=== PATIENT | male | born 1965 | race Caucasian/White ===

== ENCOUNTER 2024-07-11 06:03 | Inpatient (IN) | payer OTHER, SELFPAY ==
[2024-07-11] VITALS (9 sets, daily range): BP systolic 120–173; BP diastolic 77–109; PULSE 58–96; RESP 16–20; TEMP 36.4–37.3; O2SAT 94–97; BMI 36.1
--- NOTE | 2024-07-11 06:07 | EKG_ITS ---
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
--- NOTE | 2024-07-11 06:19 | PD.EDRME ---
Rapid Medical Screening Exam RME Arrival date/time: 07/11/24 06:03 58-year-old male with a history of hypertension, hyperlipidemia, and CABG presents to the emergency room with a chief complaint of 7 out of 10 sternal chest pain that radiates to the left arm that began this morning. Patient states he has taken 1 nitroglycerin. I have greeted and performed a focused initial assessment of this patient. A comprehensive ED assessment and evaluation of the patient, analysis of all test results, and completion of the medical decision making process will be conducted by additional ED providers. Chief Complaint: Chest Pain Vital signs: Vital Signs Temperature 97.9 F 07/11/24 06:15 Pulse Rate 90 07/11/24 06:15 Respiratory Rate 18 07/11/24 06:15 Blood Pressure 165/103 H 07/11/24 06:15 Pulse Oximetry (%) 97 07/11/24 06:15 Oxygen Delivery Method Room Air 07/11/24 06:15 Vital signs reviewed by provider: Yes
--- NOTE | 2024-07-11 06:44 | EDNOTE_ITS ---
ED Chest Pain RME/HPI General Chief Complaint: Chest Pain Stated Complaint: Chest Pain bilateral arm pain Time Seen by Provider: 07/11/24 06:38 Arrival date/time: 07/11/24 06:03 RME / HPI RME / HPI narrative: 07/11/24 06:03 58-year-old male with a history of hypertension, hyperlipidemia, and CABG presents to the emergency room with a chief complaint of 7 out of 10 sternal chest pain that radiates to the left arm that began this morning. Patient states he has taken 1 nitroglycerin. I have greeted and performed a focused initial assessment of this patient. A comprehensive ED assessment and evaluation of the patient, analysis of all test results, and completion of the medical decision making process will be conducted by additional ED providers. This section includes all my notes and documentations, including HPI, PE, and ED course.? 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 States he went to bed at his usual state of health last night. At approximately 05:00 am today while laying in bed noted a burning pain located across his chest that radiates to his left arm. Rated 7/10 while in the ED. Accompanied by elevated heart rate. Patient reported he forgot to take his Lisinopril, Metropolol, and Klonopin last night. Took his Lisinopril, Metropolol, and 1/2 of his Klonopin this morning in addition to 1 SL Nitro and 325mg Aspirin. States very mild improvement after taking his medications. Denies any recent illness, fevers, chills, cough, shortness of breath, sweating, abdominal pain, nausea, or vomiting. Denies known history of COPD or asthma. No other complaints. Social hx: Denies smoking Cub Reporter: Dr. Keily Tian ROS: All negative except as documented in HPI. Physical Exam: General:? Alert and oriented.? No acute distress when remaining still.?? Eyes:? Conjunctivae and lids clear.? ENT:? No nasal congestion.? Neck:? Supple.? Heart:? RRR.? Lungs:? No respiratory distress.? Good air movement.? No rhonchi, wheezing, rales.?? Abdomen:? Soft and nontender.?? Legs:? No clubbing, cyanosis, edema.? Skin:? Warm and dry.?? Neuro:? Alert and oriented X 3.?? Initially, suspected anxiety. Oral Xanax given, no significant improvement noted. I reviewed all diagnostic test results. My interpretation of the EKG is?sinus rhythm with nonspecific ST?T changes. My interpretation of the chest x-ray is no acute findings, official radiology report is pending. Blood tests remarkable for troponin 0.097. UA pending. At this point, diagnoses include?NSTEMI. Treatment here included?morphine 2 mg IV, oral metoprolol 25 mg, Plavix 100 mg, and Lovenox 125 mg SC. Patient took ASA 325 mg at home. Some improvement noted. I discussed the case with our granite polisher apprentice and our hospitalist.? About the presentation and exam and diagnostics and treatments here.? And need of further care in the hospital.? Will accept the patient. Sterling Robins MD Related Data Home Medications ?Medication ?Instructions ?Recorded ?Confirmed allopurinol 300 mg tablet 300 mg PO DAILY ##0 04/29/13 12/05/23 lisinopril 20 mg tablet (Prinivil) 40 mg PO HS #30 tabs 04/29/13 12/05/23 simvastatin 40 mg tablet 40 mg PO HS ##0 04/29/13 12/05/23 clonazepam 1 mg tablet (Klonopin) 1 mg PO HS #0 tabs 12/02/13 12/05/23 hydrocodone 5 mg-acetaminophen 325 1 tab PO Q6H PRN Back Pain 04/18/23 12/05/23 mg tablet metoprolol tartrate 50 mg tablet 50 mg PO BID 04/18/23 12/05/23 Allergies Allergy/AdvReac Type Severity Reaction Status Date / Time No Known Allergies Allergy Verified 07/11/24 06:06 Review of Systems Review of Systems Systems Reviewed: All systems reviewed, normal except as documented Past Medical History Past Medical History CARDIAC: Positive Cardiac Disorders, Coronary Artery Disease, Hypercholesterolemia and Hypertension MUSCULOSKELETAL: Positive Musculoskeletal Disorders Surgical History SURGICAL: Positive Coronary Artery Bypass Graft Social History SMOKING STATUS: Former smoker ED Exam Narrative Physical exam: As noted in HPI Course Course Course Narrative: chest xray ordered to help determine etiology of chest pain. Quality Measures none Orders Category Date Time Status COVID-19 Screening Questionnaire NOW Care 07/11/24 08:21 Active Decision to Admit X1 Care 07/11/24 08:21 Completed EKG (ED ONLY) *Do not use* NOW Care 07/11/24 06:07 Completed Saline [Insert IV] NOW Care 07/11/24 06:45 Active Consult to Cardiology Stat Cons 07/11/24 08:17 Ordered EKG (ED Only) Stat Exams 07/11/24 06:07 Ordered XR chest 1V portable Stat Exams 07/11/24 07:26 Taken B-Type Natriuretic Peptide Stat Lab 07/11/24 07:01 Completed CBC Stat Lab 07/11/24 07:01 Completed Comprehensive Metabolic Panel Stat Lab 07/11/24 07:01 Completed D-Dimer Stat Lab 07/11/24 07:01 Completed Drug Screen,Urine Stat Lab 07/11/24 07:30 Received Magnesium Stat Lab 07/11/24 07:01 Completed PT [Prothrombin Time with INR] Stat Lab 07/11/24 08:10 Ordered PTT [Partial Thromboplastin Time] Stat Lab 07/11/24 08:10 Ordered TSH [Thyroid Stimulating Hormone] Stat Lab 07/11/24 07:01 Completed Troponin I Stat Lab 07/11/24 07:01 Completed Urinalysis Stat Lab 07/11/24 07:30 Received ALPRazoLAM [Xanax] Med 07/11/24 06:45 Discontinued 1 mg PO X1 ONE Clopidogrel [Plavix] Med 07/11/24 08:06 Discontinued 300 mg PO X1 ONE Enoxaparin [Lovenox] Med 07/11/24 08:19 Discontinued 125 mg SC X1 ONE Metoprolol Tartrate [Lopressor] Med 07/11/24 08:06 Discontinued 25 mg PO X1 ONE Morphine Inj Med 07/11/24 08:06 Discontinued 4 mg IVP X1 ONE Vital Signs Vital signs: Vital Signs Temperature 97.9 F 07/11/24 06:15 Pulse Rate 90 07/11/24 06:15 Respiratory Rate 18 07/11/24 06:15 Blood Pressure 165/103 H 07/11/24 06:15 Pulse Oximetry (%) 97 07/11/24 06:15 Oxygen Delivery Method Room Air 07/11/24 06:15 Pulse ox is 97% on room air which is adequate. Chest Pain MDM Narrative MDM Narrative:: I, Jo Doe, am scribing for and in the presence of Dr. Robins. Patient data External records reviewed:: [facility] previous records (I reviewed ED visit on 04/18/2023) Clinical information provided by:: patient Social determinants that could affect healthcare access:: none Patient has the following chronic illnesses:: NV, CAD, s/p CABG 10/2012, hypertension, hyperlipidemia How is presenting disease/condition affected by chronic disease/condition?: exacerbated by Evaluation data The following diagnostics were reviewed and interpreted by me:: lab results, radiology exam(s) and EKG tracing(s) (My interpretation of the EKG is: Sinus rhythm (86 bpm) with nonspecific ST-T changes. Sterling Robins MD) Lab and/or radiology exams considered but not ordered:: None Interpretation Summary: NSTEMI Medications / Prescriptions Medications or Prescriptions considered but not ordered:: None Medication administrations:: Medication Administration History Discontinued Medications Alprazolam (Alprazolam 0.25 Mg Tablet) 1 mg PO X1 ONE Stop: 07/11/24 06:46 Last Admin: 07/11/24 06:52 Dose: 1 mg Documented By: EMELY Clopidogrel Bisulfate (Clopidogrel Bisulfate 75 Mg Tablet) 300 mg PO X1 ONE Stop: 07/11/24 08:07 Last Admin: 07/11/24 08:17 Dose: 300 mg Documented By: LANEY Enoxaparin Sodium (Enoxaparin Sod Inj 120 Mg/0.8 Ml Syringe) 125 mg SC X1 ONE Stop: 07/11/24 08:20 Metoprolol Tartrate (Metoprolol Tartrate 25 Mg Tablet) 25 mg PO X1 ONE Stop: 07/11/24 08:07 Last Admin: 07/11/24 08:16 Dose: 25 mg Documented By: LANEY Morphine Sulfate (Morphine Sulf Inj 10 Mg/Ml Vial) 4 mg IVP X1 ONE Stop: 07/11/24 08:07 Last Admin: 07/11/24 08:18 Dose: 4 mg Documented By: LANEY Morphine and metoprolol and Plavix and Lovenox Consultations Consultation(s) initiated? (list below): Yes Consultation #1 (Physician, Specialty, Details): I spoke with granite polisher apprentice Dr. Zarate. Discussed patients PMHx, HPI, ED course, exam findings, labs, and EKG results. Time: 08:10 Consultation #2 (Physician, Specialty, Details): I spoke with hospitalist Dr. Pereira regarding admission. Discussed patients PMHx, HPI, ED course, exam findings, labs, and radiology results. The hospitalist agree to accept the patient for admission. Time: 08:20 Diagnosis Chest Pain Differential Diagnosis: pneumothorax, stable angina, unstable angina pectoris, atypical chest pain, st elevation myocardial infarction, costochond ritis, chest pain and biliary colic Most likely diagnosis given after review of the tests above:: NSTEMI Admission Indicated Admission indicated?: indicated Explain why admission is indicated or not indicated:: NSTEMI Admission Request Was there a request for admission?: Yes Admission Attestation Admission request attestation: Discussed case with Hospitalist service regarding admission. Discussed patients ED course, exam findings, labs, and radiology results. The Hospitalist [agrees,declines] to accept the patient for admission. Disposition Plan Disposition Plan: Admit Critical Care Time Critical Care Time Critical Care Time: Yes Total Critical Care Time (min.): 36 Attestation: Due to a high probability of clinically significant, life threatening deterioration, the patient required my highest level of preparedness to intervene emergently and I personally spent this critical care time directly and personally managing the patient. This critical care time included obtaining a history; examining the patient; ordering and review of studies; arranging urgent treatment with development of a management plan; evaluation of patient's response to treatment; frequent reassessment; and discussions with family and other providers. It was exclusive of separately billable procedures and treating other patients and teaching time. Sterling Robins MD Discharge Plan Plan Patient Disposition: Admit Acute Care w/in Hospital Prescriptions/Referrals Prescriptions/Med Rec: No Action lisinopril [Prinivil] 20 MG tablet 40 mg PO HS Qty: 30 simvastatin 40 MG tablet 40 mg PO HS Qty: 0 allopurinol 300 MG tablet 300 mg PO DAILY Qty: 0 clonazepam [Klonopin] 1 MG tablet 1 mg PO HS Qty: 0 hydrocodone-acetaminophen 5-325 mg tablet 1 tab PO Q6H PRN (Reason: Back Pain) Patient Comments: TAKE 1 TABLET BY MOUTH EVERY 6 HOURS NEEDED FOR BACK PAIN metoprolol tartrate 50 mg tablet 50 mg PO BID Referrals: Faisal Nava MD [Primary Care Provider] - In 1 week Problem List Clinical Impression: Non-ST elevation NV (NSTEMI) Patient/Caregiver Discharge Instructions Print Language: Palestinian Stand Alone Forms: Flor Award Info., Patient Portal Info Letter
[2024-07-11] MEDS: ALPRazoLAM 0.25 MG TABLET 1 MG PO (06:52)
[2024-07-11 07:21] LABS: Basophils % (Auto) 1 % (0-2.5); Eosinophils # (Auto) 0.3 Thou/mm3 (0.0-0.5); Eosinophils % (Auto) 4 % (0-10); Hematocrit 43.9 % (41.0-53.0); Hemoglobin 15.3 g/dL (13.5-16.0); Immature Granulocytes % (Auto) 1 % (0-0); Immature Granulocytes Auto 0.04 Thou/mm3 (0.00-0.00); Lymphocytes # (Auto) 0.9 Thou/mm3 (1.0-4.8); Lymphocytes % (Auto) 13 % (10-50); Mean Corpuscular HGB Conc 34.9 g/dl (31.0-37.0); Mean Corpuscular Hemoglobin 31.5 pg (25.0-35.0); Mean Corpuscular Volume 90 fL (80-100); Monocytes # (Auto) 0.6 Thou/mm3 (0.0-0.8); Monocytes % (Auto) 9 % (0-12); Neutrophils # (Auto) 5.2 Thou/mm3 (1.8-7.7); Neutrophils % (Auto) 73 % (37-80); Nucleated Red Blood Cell % 0 /100 WBC (0); Platelet Count 224 Thou/mm3 (140-440); RDW Standard Deviation 40.4 fL (35.1-43.9); Red Blood Count 4.86 Miln/mm3 (4.50-5.90); White Blood Count 7.1 Thou/mm3 (3.8-10.6)
--- NOTE | 2024-07-11 07:26 | XR_ITS ---
Examination: AP chest single view Technique one AP portable upright chest single view Exam date and time: July 11, 2024 0736 hours Comparison April 18, 2023 INDICATIONS: Shortness of breath chest pain today FINDINGS: Mild prominence left ventricle Suspicious for early pneumonia left base CABG No [place] pulmonary edema Moderate osteopenia IMPRESSION: Suspicious for early left base pneumonia
[2024-07-11 07:43] LABS: Alanine Aminotransferase 33 U/L (10-49); Albumin, Serum 4.3 gm/dL (3.5-5.0); Albumin/Globulin Ratio 1.8 (1.2-2.2); Alkaline Phosphatase 95 U/L (46-116); Anion Gap 7 (7-16); Aspartate Amino Transferase 28 U/L (0-34); BUN/Creatinine Ratio 13 Ratio (12-20); Bilirubin,Total 0.3 mg/dL (0.3-1.2); Blood Urea Nitrogen 18 mg/dL (9-23); Calcium 9.1 mg/dL (8.3-10.6); Calcium (Corrected) 9.1 mg/dL (8.5-10.1); Carbon Dioxide 25.7 mMol/L (20.0-31.0); Chloride 105 mMol/L (98-107); Creatinine (Component) 1.4 mg/dL (0.6-1.3); Estimated Creatinine Clearance 78.5 mL/min (>60); Globulin 2.4 gm/dL (2.3-3.5); Glucose 185 mg/dL (74-106); Osmolality,Calculated 282 (275-295); Potassium 4.5 mMol/L (3.4-5.1); Sodium 138 mMol/L (136-145); Thyroid Stimulating Hormone 3.09 uIU/mL (0.55-4.78); Total Protein 6.7 gm/dL (5.7-8.2); eGFR 58 See Note
[2024-07-11 07:46] LABS: D-Dimer < 250 ng/mL (<600)
[2024-07-11 07:56] LABS: Troponin I 0.097 ng/mL (0.0-0.045)
[2024-07-11 08:00] LABS: Collection Type, Urine Clean Catch; Squamous Epithelial Cell,Urine 0 /hpf (0-5)
[2024-07-11 08:14] LABS: B-Type Natriuretic Peptide 61 pg/mL (0-100)
[2024-07-11] MEDS: METOPROLOL TARTRATE 25 MG TABLET PO (08:16)
[2024-07-11] MEDS: CLOPIDOGREL BISULFATE 75 MG TABLET 300 MG PO (08:17)
[2024-07-11] MEDS: MORPHINE SULF INJ 10 MG/ML VIAL 4 MG IVP (08:18)
[2024-07-11 08:31] LABS: Amphetamine/Methamp Scrn,U Negative (Negative); Barbiturate Screen,Urine Negative (Negative); Benzodiazepines Screen,Urine Negative (Negative); Benzoylecgonine Screen, Ur Negative (Negative); Fentanyl Screen,Urine Negative (Negative); Opiate Screen,Urine Positive (Negative); THC Screen,Urine Negative (Negative)
[2024-07-11 08:35] LABS: Bilirubin,Urine Negative (Negative); Blood,Urine Negative (Negative); Clarity,Urine Clear (Clear/Hazy); Color,Urine Colorless (Lt Yel-Yel); Glucose, Urine Negative (Negative); Ketones,Urine Negative (Negative); Leukocyte Esterase,Urine Negative (Negative); Nitrite,Urine Negative (Negative); PH,Urine 6.5 (5.0-7.0); Protein,Urine Negative (Neg - Trace); RBC,Urine < 1 /hpf (0-3); Urobilinogen,Urine Negative mg/dL (0.0-1.0); WBC,Urine < 1 /hpf (0-5)
[2024-07-11] MEDS: ENOXAPARIN SOD INJ 100 MG/ML SYRINGE 125 MG SC (09:01)
[2024-07-11] MEDS: PANTOPRAZOLE INJ 40 MG VIAL IVP (09:01)
[2024-07-11 09:18] LABS: Partial Thromboplastin Time 26.5 Seconds (22.0-36.0); Prothrombin Time 10.9 Seconds (9.0-12.2)
[2024-07-11 09:25] LABS: Glucose Estimated Average 123 mg/dL (80-131); Hemoglobin A1C 5.9 % Hgb (4.8-6.0)
[2024-07-11 09:37] LABS: Cardiac Risk Estimate 4.3 RATIO (4.0-6.7); Cholesterol 178 mg/dL (132-200); HDL Cholesterol 41 mg/dL (40-60); Triglycerides 415 mg/dL (30-150)
--- NOTE | 2024-07-11 10:53 | PC.CC ---
Patient is a 58 year-old male who presents to the hospital for ANGINA. Astrid NASH made [id number] contact with patient. ASW introduced self, role, and reason for visit. Patient appeared alert and oriented to self, location, and situation. Patient was pleasant and engaged in initial assessment. Patient confirmed information on demographics and reports to living withhis , Keyonna Bales . Patient stated that his is his medical decision maker should he not be able to make his own medical decision. Patient is able to ambulate independently and complete own ADLs. Patient does not use any DME at home. Patient receives primary care with provider Faisal Nava and pharmacy of choice is [facility]. Upon discharge patient plans to return home with his . environmental services associate to follow-up with any discharge needs.
--- NOTE | 2024-07-11 11:36 | ECHO_ITS ---
Transthoracic Echo Report Ht (in): 73 Wt (lb): 274 Exam Location: ER Status: Inpatient Contact Centre Supervisor: Hermila Stroud Indications: Procedure Performed: BP: 120 / 83 HR: 63 Rhythm: Sinus Technical Quality: Technically difficult study MEASUREMENTS (Male / Female) Normal Values 2D ECHO LV Diastolic Diameter PLAX 6.0 cm 4.2 - 5.9 / 3.9 - 5.3 cm LV Systolic Diameter PLAX 4.7 cm IVS Diastolic Thickness 1.2 cm 0.6 - 1.0 / 0.6 - 0.9 cm LVPW Diastolic Thickness 1.0 cm 0.6 - 1.0 / 0.6 - 0.9 cm LV Relative Wall Thickness 0.4 LVOT Diameter 2.7 cm LA Volume Index 38.5 cm?/m? 16 - 28 cm?/m? Ascending Aorta Diameter 3.8 cm M-MODE Aortic Root Diameter MM 4.2 cm LA Systolic Diameter MM 4.7 cm LA Ao Ratio MM 1.1 AV Cusp Separation MM 2.3 cm DOPPLER AV Peak Velocity 101.0 cm/s AV Peak Gradient 4.1 mmHg AV Mean Gradient 3.0 mmHg AV Velocity Time Integral 21.5 cm AI Peak Velocity 277.0 cm/s AI Peak Gradient 30.7 mmHg AI Pressure Half Time 510.0 ms LVOT Peak Velocity 63.5 cm/s LVOT Peak Gradient 1.6 mmHg LVOT Velocity Time Integral 13.1 cm LVOT Cardiac Index 1836.5 cm?/min?m? AV Area Cont Eq vti 3.5 cm? AV Area Cont Eq pk 3.6 cm? MV Peak Velocity 77.5 cm/s MV Peak Gradient 2.4 mmHg MV Mean Velocity 43.5 cm/s MV Mean Gradient 1.0 mmHg MV Area PHT 3.4 cm? MR Peak Velocity 244.0 cm/s MR Peak Gradient 23.8 mmHg Mitral E Point Velocity 68.8 cm/s Mitral A Point Velocity 57.7 cm/s Mitral E to A Ratio 1.2 LV E' Lateral Velocity 8.1 cm/s Mitral E to LV E' Lateral Ratio 8.6 LV E' Septal Velocity 4.9 cm/s Mitral E to LV E' Septal Ratio 14.1 FINDINGS Left Ventricle Dilated left ventricle. Mild systolic dysfunction. Mild global hypokinesis. The ejection fraction i s visually estimated at 40-45%. Right Ventricle The right ventricle is normal in size and systolic function. Left Atrium The left atrium is mildly dilated. Right Atrium The right atrium is normal by two-dimensional imaging, color flow and Doppler imaging with no struct ural abnormalities, no thrombus formation present. Atrial Septum The interatrial septum appears normal with no evidence of a shunt. Aorta The aortic root and ascending aorta are mildly dilated. Mitral Valve The mitral valve is normal by two-dimensional, color flow and Doppler interrogation. There is mild mitral valve regurgitation. Aortic Valve The aortic valve is trileaflet and normal by two-dimensional, color flow and Doppler interrogation. There is mild aortic valve regurgitation. Tricuspid Valve The tricuspid valve is normal by two-dimensional, color flow and Doppler interrogation. There is tra ce tricuspid valve regurgitation. Pulmonic Valve There is mild pulmonic valve regurgitation. Vessels The pulmonary artery appears normal. The inferior vena cava pulmonary and hepatic veins appear radha l. Pericardium The pericardium is normal by two-dimensional imaging. There is no significant pericardial effusion. CONCLUSIONS Dilated left ventricle. Mild systolic dysfunction. Mild global hypokinesis. Estimated EF 40-45% Normal RV size and function. The left atrium is mildly dilated. The aortic root and ascending aorta are mildly dilated. Mild MR, Maritza Jerzy (Electronically Signed) Final Date: 11 July 2024 15:39
[2024-07-11] MEDS: HYDROcodone/APAP 10/325 TAB PO ×2 (13:23→23:10)
--- NOTE | 2024-07-11 15:01 | ESCONSULT_ITS ---
<Statement entered by Zeenat Tian MD - 07/13/24 09:13> I personally examined the patient evaluated has known CAD bypass surgery has recurrent chest pain was found to acute non-ST segment elevation microinfarction will Lovenox and scheduled for coronary angiogram cardiac evaluation for further assessment agree with the treatment plan recommendation as documented by PGY 2 Dr Lopez. HPI Data of Consult Requesting Physician: Hugh Pereira MD Admitting Provider: Hugh Pereira MD Attending Provider: Hugh Pereira MD Primary Care Provider: Faisal Nava MD Consult Narrative Reason for consult: Chest pain History of present illness: Mr. Bales is a 58-year-old male with past medical history significant for CAD status post CABG, hypertension, hyperlipidemia, prediabetes, anxiety, arthritis who presented to the ED with severe, dull chest pain. Patient states that he got up at 2 AM this morning to use the restroom, and felt sweaty and nauseated. Patient went back to sleep, however woke up to tingling and dull 10 out of 10 chest pain which woke him up around 3:50 AM. Patient's pain started in his left elbow radiating to his left shoulder and chest region as well as to the right shoulder. Patient states that this pain was different to his previous NE which was in 2012. Patient states that he took a nitro glycerin sublingual as well as aspirin 325 mg which helped with his pain. However, chest pain was not going away, and decided to come to the ER instead of going to work. Of note, patient is scheduled to have a colonoscopy next week. Past medical history: As mentioned above Past surgical history: CABG on October 09, 2012 in [place] Social history: Patient socially drinks, about 3-4 beers a week. Patient smoked about 1 pack a month for about 2 or 3 years when he was really young. Patient denies any recent smoking or any illicit drug use. Family history: Positive for diabetes, cancer on his father side. Allergies: Allergic to Felipe, patient breaks out into hives Meds: Patient takes hydrocodone 5-325 mg, allopurinol 300 mg p.o. daily, aspirin 325 mg p.o. daily, Klonopin 1 mg p.o. at bedtime,lisinopril 40 mg at bedtime, loratadine 10 mg p.o. daily, metoprolol tartrate 50 mg p.o. twice daily, nitroglycerin 0.4 mg as needed, simvastatin 40 mg p.o. at bedtime, co-Q10, show caplets, multi vitamin mens In the ED, patient vital signs remarkable for elevated blood pressure 165/103 otherwise unremarkable. Labs significant for elevated troponin of 0.097 which elevated to 15.7, 3 hours later. Triglycerides elevated at 415. Total cholesterol 178 and HDL 41. Elevated creatinine at 1.4, baseline creatinine between 1.1-1.3. Patient initially given alprazolam 1 mg x 1 for his anxiety, metoprolol tartrate 25 mg x 1, as well as loading dose of Plavix 300 mg x 1. Patient's pain continued to worsen, and was given morphine 4 mg IV x 1 which helped with the pain. Patient also treated with therapeutic Lovenox 100 mg subcu and IV pantoprazole. Cardiology was consulted for further evaluation of NSTEMI. cc:: cc: Hugh Pereira MD Review of Systems Review of Systems Systems Reviewed: All systems reviewed, normal except as documented Exam Vital Signs Temp Pulse Resp BP Pulse Ox O2 Del Method 97.9 F 70 16 141/96 H 96 Room Air 07/11/24 14:33 07/11/24 14:33 07/11/24 14:33 07/11/24 14:33 07/11/24 14:33 07/11/24 14:33 Narrative Exam General Appearance: Pt in mild acute distress laying comfortably in bed. Obese, and appears flushed. HEENT: NC/AT, no scleral icterus, no conjunctival pallor, MMM Lungs: CTAB, no wheezes or crackles appreciated CVS: RRR, S1/S2 heard, no murmurs or rubs appreciated ABD: Soft, non-tender, non-distended, BS + in all 4 quadrants EXT: no deformity/edema/lesions/cyanosis/clubbing, radial pulses 2+ BL, DP pulses 2 + BL SKIN: Skin exam normal without any rashes. Neuro: A&O x 3. No gross neurological deficits. Motor and sensory grossly intact in B/L UL and LL. Psych: Appropriate mood and affect Results Labs 07/12/24 05:50 07/12/24 05:50 Labs: Short CBC 07/11/24 Range/Units 07:01 WBC 7.1 (3.8-10.6) Thou/mm3 Hgb 15.3 (13.5-16.0) g/dL Hct 43.9 (41.0-53.0) % Plt Count 224 (140-440) Thou/mm3 BMP 07/11/24 07:01 Sodium 138 Potassium 4.5 Chloride 105 Carbon Dioxide 25.7 BUN 18 Creatinine 1.4 H Glucose 185 H Calcium 9.1 Cardiac Enzymes 07/11/24 07/11/24 Range/Units 07:01 10:32 Troponin I 0.097 H* 15.700 H* D (0.0-0.045) ng/mL Liver Function 07/11/24 Range/Units 07:01 Total Bilirubin 0.3 (0.3-1.2) mg/dL AST 28 (0-34) U/L ALT 33 (10-49) U/L Alkaline Phosphatase 95 (46-116) U/L Albumin 4.3 (3.5-5.0) gm/dL Urine 07/11/24 Range/Units 07:30 Urine Color Colorless A (Lt Yel-Yel) Urine Clarity Clear (Clear/Hazy) Urine pH 6.5 (5.0-7.0) Ur Specific [place] 1.010 (1.001-1.035) Urine Protein Negative (Neg - Trace) Urine Glucose (UA) Negative (Negative) Quality Measures Quality Measures none Medications Home Medications and Allergies Home Medications ?Medication ?Instructions ?Recorded ?Confirmed ?Type allopurinol 300 mg tablet 300 mg PO DAILY ##0 04/29/13 07/11/24 History lisinopril 20 mg tablet (Prinivil) 40 mg PO HS #30 tabs 04/29/13 07/11/24 History simvastatin 40 mg tablet 40 mg PO HS ##0 04/29/13 07/11/24 History clonazepam 1 mg tablet (Klonopin) 1 mg PO HS #0 tabs 12/02/13 07/11/24 History hydrocodone 5 mg-acetaminophen 325 1 tab PO Q6H PRN Back Pain 04/18/23 07/11/24 History mg tablet metoprolol tartrate 50 mg tablet 50 mg PO BID 04/18/23 07/11/24 History aspirin 325 mg capsule 325 mg PO QDAY 07/11/24 07/11/24 History loratadine 10 mg tablet (Claritin) 10 mg PO QDAY PRN Allergy Symptoms 07/11/24 07/11/24 History nitroglycerin 0.4 mg sublingual 0.4 mg buccal PRN PRN Chest Pain 07/11/24 07/11/24 History tablet Allergies Allergy/AdvReac Type Severity Reaction Status Date / Time No Known Allergies Allergy Verified 07/11/24 06:06 Visit Medications Acetaminophen (Acetaminophen 325 Mg Tablet) 650 mg PO Q6H PRN PRN Reason: PAIN SCALE 1-3 (mild Stop: 08/10/24 08:47 Acetaminophen (Acetaminophen 325 Mg Tablet) 650 mg PO Q6H PRN PRN Reason: Fever >100 Stop: 08/10/24 08:47 Hydrocodone Bitart/Acetaminophen (Hydrocodone/Apap 10/325 Tab) 1 tab PO Q4HR PRN PRN Reason: PAIN SCALE 7-10 (Severe Stop: 07/16/24 08:47 Last Admin: 07/11/24 13:23 Dose: 1 tab Clopidogrel Bisulfate (Clopidogrel Bisulfate 75 Mg Tablet) 75 mg PO QDAY [facility] Stop: 08/11/24 08:59 Enoxaparin Sodium (Enoxaparin Sod Inj 100 Mg/Ml Syringe) 120 mg 1 mg/kg (120 mg) SC BID [facility] Stop: 07/12/24 00:00 Ondansetron HCl (Ondansetron Inj 2 Mg/Ml Inj 2 Ml) 4 mg IV Q6H PRN; Protocol PRN Reason: NAUSEA OR VOMITING Stop: 08/10/24 08:47 Oxycodone/Acetaminophen (Oxycodone/Apap 5/325 Tablet) 1 tab PO Q6H PRN PRN Reason: PAIN SCALE 4-6 (Moderate Stop: 07/16/24 08:47 Pantoprazole Sodium (Pantoprazole Inj 40 Mg Vial) 40 mg IVP QDAY [facility] Stop: 08/10/24 08:59 Last Admin: 07/11/24 09:01 Dose: 40 mg Discontinued Medications Alprazolam (Alprazolam 0.25 Mg Tablet) 1 mg PO X1 ONE Stop: 07/11/24 06:46 Last Admin: 07/11/24 06:52 Dose: 1 mg Clopidogrel Bisulfate (Clopidogrel Bisulfate 75 Mg Tablet) 300 mg PO X1 ONE Stop: 07/11/24 08:07 Last Admin: 07/11/24 08:17 Dose: 300 mg Enoxaparin Sodium (Enoxaparin Sod Inj 100 Mg/Ml Syringe) 125 mg SC X1 ONE Stop: 07/11/24 08:31 Last Admin: 07/11/24 09:01 Dose: 125 mg Metoprolol Tartrate (Metoprolol Tartrate 25 Mg Tablet) 25 mg PO X1 ONE Stop: 07/11/24 08:07 Last Admin: 07/11/24 08:16 Dose: 25 mg Morphine Sulfate (Morphine Sulf Inj 10 Mg/Ml Vial) 4 mg IVP X1 ONE Stop: 07/11/24 08:07 Last Admin: 07/11/24 08:18 Dose: 4 mg Assessment & Plan Plan Mr. Bales is a 58-year-old male with past medical history significant for CAD status post CABG, hypertension, hyperlipidemia, prediabetes, anxiety, arthritis who presented to the ED with severe, dull chest pain and admitted for NSTEMI workup. #NSTEMI #CAD s/p CABD #HTN #HLD Patient has a history of CAD with CABG in 2012 on daily aspirin 325 mg. Patient had an episode of chest pain starting early this morning that was dull and tingling in nature which woke him up. Patient's pain improved after getting morphine IV in the ED. Patient also received nitroglycerin, his home aspirin at home as well as morphine in the ED, pantoprazole, and loading dose Plavix. Troponins up trended from 0.097-15.7 after 3 hours. EKG continues to be normal sinus rhythm specific ST-T changes. Patient also received therapeutic enoxaparin 1.5 mg subcu x 1. Triglycerides were 415. ? Continue to monitor signs and symptoms and telemetry ? Continue with Plavix 75 mg daily and atorvastatin 40 mg p.o. at bedtime ? Will receive tonight's dose of enoxaparin 120mg to complete anticoagulation today - No need to start heparin gtt as patient is anticoagulated with therapeutic enoxaparin ? Continue to trend troponin Q6 ? Patient is scheduled for cath tomorrow at 09:00AM ? Maintain potassium above 4 and magnesium above 2 ? Continue home aspirin dose at 325mg QD - Restart home lisinopril 40 mg daily and metoprolol 50 mg twice daily as BP tolerates Rest of problems per primary team #Generalized anxiety disorder #Gout #Anxiety Patient's plan and care discussed with my attending, Dr. Jaylan Lopez MD PGY-2
--- NOTE | 2024-07-11 15:03 | PD.RESHP ---
Documentation for date of: 07/11/24 [facility] History of Present Illness History of present illness: This is a 58-year-old male PMHx of HTN, HLD, CAD with CABG 2 years ago, presenting with acute substernal chest pressure that started this morning. Pain 7 out of 10, radiating to right arm initially than the left arm. Pain relieved with home NITROGLYCERIN x 1. He states he did not take his LISINOPRIL and METOPROLOL last night. Also states he has been experience worsening anxiety over the last few weeks, related to work and personal matters. He is taking ANXIOLYTIC medications as prescribed. Patient drove self to the ED. At the time admission his pain has improved, rated a 5/10 for which she was given one-time MORPHINE in the ED. At the time exam patient appears comfortable, speaking full sentences without acute distress. Denies headaches, lightheadedness, syncope, head trauma, fever, chills, SOB, cough, GI or urinary symptoms. ED COURSE: Afebrile, P1 65/103, HR 90, RR 18, satting 97% on room air. CBC unremarkable. Normal coag studies. Troponin 0.097 then 15.7 after 3 hours. EKG showed sinus rhythm, no acute ST changes. CXR suspicious for early left base pneumonia. Patient admitted under hospital service for cath with cardiology. PMHx: HTN, HLD, CAD, CABG PSHx: CABG MEDS: METOPROLOL 50 mg BID, LISINOPRIL 40 mg, NITROGLYCERIN 0.4 mg PRN, SIMVASTATIN 40 mg, ASPIRIN 325 mg daily, ALLOPURINOL 300 mg daily, LORATADINE 10 mg, CLONAZEPAM 1 mg HS. ALLERGIES: NKA SH: Denies alcohol, tobacco or drug use Exam Vital Signs Temp Pulse Resp BP Pulse Ox O2 Del Method 97.9 F 70 16 141/96 H 96 Room Air 07/11/24 14:33 07/11/24 14:33 07/11/24 14:33 07/11/24 14:33 07/11/24 14:33 07/11/24 14:33 Narrative Exam GENERAL Normal appearing middle-aged male, NAD, on nasal cannula. HEENT NCAT.?IDALIA. Oral mucosa is moist. Patent Nares NECK Supple, nontender, no thyromegaly, no meningismus, no JVD, no step offs CHEST RRR, no m/g/r CTAB, no w/r/r. Symmetrical chest rise. No intercostal subcostal retraction Atraumatic, nontender, no crepitus, symmetrical expansion. ABDOMEN Soft, flat, nontender. No guarding/rebound tenderness/masses. Bowel sounds presents EXTREMITIES Nontender, no cyanosis, no edema No edema/cyanosis.? SKIN Warm and dry, no jaundice/rashes. NEUROMUSCULAR No lumbar or midline, no CVA, no paraspinal muscle spasm or tenderness. Moves all 4 extremities well, with full ROM and good CSM. H[place]SON x4, CN II-XII grossly intact. No focal neurologic deficits. PSYCHIATRY Normal mood and affect, cooperative, no SI or HI or hallucinations. Results: Labs 07/12/24 05:50 07/12/24 05:50 Labs: Short CBC 07/11/24 Range/Units 07:01 WBC 7.1 (3.8-10.6) Thou/mm3 Hgb 15.3 (13.5-16.0) g/dL Hct 43.9 (41.0-53.0) % Plt Count 224 (140-440) Thou/mm3 BMP 07/11/24 07:01 Sodium 138 Potassium 4.5 Chloride 105 Carbon Dioxide 25.7 BUN 18 Creatinine 1.4 H Glucose 185 H Calcium 9.1 Cardiac Enzymes 07/11/24 07/11/24 Range/Units 07:01 10:32 Troponin I 0.097 H* 15.700 H* D (0.0-0.045) ng/mL Liver Function 07/11/24 Range/Units 07:01 Total Bilirubin 0.3 (0.3-1.2) mg/dL AST 28 (0-34) U/L ALT 33 (10-49) U/L Alkaline Phosphatase 95 (46-116) U/L Albumin 4.3 (3.5-5.0) gm/dL Urine 07/11/24 Range/Units 07:30 Urine Color Colorless A (Lt Yel-Yel) Urine Clarity Clear (Clear/Hazy) Urine pH 6.5 (5.0-7.0) Ur Specific [place] 1.010 (1.001-1.035) Urine Protein Negative (Neg - Trace) Urine Glucose (UA) Negative (Negative) Quality Measures Quality Measures none Medications Home Medications and Allergies Home Medications ?Medication ?Instructions ?Recorded ?Confirmed ?Type allopurinol 300 mg tablet 300 mg PO DAILY ##0 04/29/13 07/11/24 History lisinopril 20 mg tablet (Prinivil) 40 mg PO HS #30 tabs 04/29/13 07/11/24 History simvastatin 40 mg tablet 40 mg PO HS ##0 04/29/13 07/11/24 History clonazepam 1 mg tablet (Klonopin) 1 mg PO HS #0 tabs 12/02/13 07/11/24 History hydrocodone 5 mg-acetaminophen 325 1 tab PO Q6H PRN Back Pain 04/18/23 07/11/24 History mg tablet metoprolol tartrate 50 mg tablet 50 mg PO BID 04/18/23 07/11/24 History aspirin 325 mg capsule 325 mg PO QDAY 07/11/24 07/11/24 History loratadine 10 mg tablet (Claritin) 10 mg PO QDAY PRN Allergy Symptoms 07/11/24 07/11/24 History nitroglycerin 0.4 mg sublingual 0.4 mg buccal PRN PRN Chest Pain 07/11/24 07/11/24 History tablet Allergies Allergy/AdvReac Type Severity Reaction Status Date / Time No Known Allergies Allergy Verified 07/11/24 06:06 Visit Medications Acetaminophen (Acetaminophen 325 Mg Tablet) 650 mg PO Q6H PRN PRN Reason: PAIN SCALE 1-3 (mild Stop: 08/10/24 08:47 Acetaminophen (Acetaminophen 325 Mg Tablet) 650 mg PO Q6H PRN PRN Reason: Fever >100 Stop: 08/10/24 08:47 Hydrocodone Bitart/Acetaminophen (Hydrocodone/Apap 10/325 Tab) 1 tab PO Q4HR PRN PRN Reason: PAIN SCALE 7-10 (Severe Stop: 07/16/24 08:47 Last Admin: 07/11/24 13:23 Dose: 1 tab Clopidogrel Bisulfate (Clopidogrel Bisulfate 75 Mg Tablet) 75 mg PO QDAY [facility] Stop: 08/11/24 08:59 Enoxaparin Sodium (Enoxaparin Sod Inj 100 Mg/Ml Syringe) 120 mg 1 mg/kg (120 mg) SC BID [facility] Stop: 07/12/24 00:00 Ondansetron HCl (Ondansetron Inj 2 Mg/Ml Inj 2 Ml) 4 mg IV Q6H PRN; Protocol PRN Reason: NAUSEA OR VOMITING Stop: 08/10/24 08:47 Oxycodone/Acetaminophen (Oxycodone/Apap 5/325 Tablet) 1 tab PO Q6H PRN PRN Reason: PAIN SCALE 4-6 (Moderate Stop: 07/16/24 08:47 Pantoprazole Sodium (Pantoprazole Inj 40 Mg Vial) 40 mg IVP QDAY [facility] Stop: 08/10/24 08:59 Last Admin: 07/11/24 09:01 Dose: 40 mg Discontinued Medications Alprazolam (Alprazolam 0.25 Mg Tablet) 1 mg PO X1 ONE Stop: 07/11/24 06:46 Last Admin: 07/11/24 06:52 Dose: 1 mg Clopidogrel Bisulfate (Clopidogrel Bisulfate 75 Mg Tablet) 300 mg PO X1 ONE Stop: 07/11/24 08:07 Last Admin: 07/11/24 08:17 Dose: 300 mg Enoxaparin Sodium (Enoxaparin Sod Inj 100 Mg/Ml Syringe) 125 mg SC X1 ONE Stop: 07/11/24 08:31 Last Admin: 07/11/24 09:01 Dose: 125 mg Metoprolol Tartrate (Metoprolol Tartrate 25 Mg Tablet) 25 mg PO X1 ONE Stop: 07/11/24 08:07 Last Admin: 07/11/24 08:16 Dose: 25 mg Morphine Sulfate (Morphine Sulf Inj 10 Mg/Ml Vial) 4 mg IVP X1 ONE Stop: 07/11/24 08:07 Last Admin: 07/11/24 08:18 Dose: 4 mg Assessment & Plan Plan In summary: 58-year-old male with PMH of HTN, HLD, CAD with CABG, presenting with acute substernal chest pain. Admitted for acute coronary syndrome. Scheduled for Dental Surgery Doctor today. Appreciate recommendation from cardiology. NSTEMI CAD s/p CABG HTN, HLD History of CAD with CABG on daily ASPIRIN 325 mg. Presenting with acute episode of chest pain starting this morning, improved shortly after ASPIRIN and NITROGLYCERIN. Troponin 0.097 then 15.7 after 3 hours. EKG showed sinus rhythm, no acute ST changes. Given MORPHINE, METOPROLOL, loading dose CLOPIDOGREL to ENOXAPARIN. TG 415, cholesterol 178, LDL performed (TG t0o high). TSH/free T4 WNL. A1c 5.9. Currently BP 141/96, HR 70. Denies chest pain or chest discomfort. Pending Dental Surgery Doctor. ? Admission telemetry ? Started CLOPIDOGREL 75 mg daily ? Started ENOXAPARIN on 120 mg BID ? Continue home ATORVASTATIN 40 mg, may need to increase to 80 mg ? Holding home METOPROLOL 50 mg BID, ASPIRIN 325 mg daily, LISINOPRIL 40 mg daily until further recommendations from cardiology ? Maintain K>4.0 and Mag>2.0 ? Trending troponin Generalized anxiety disorder Reports being more anxious lately as a result of work at home stress. No suicidal or homicidal ideation. ? Continue home CLONAZEPAM 1 mg HS Gout History of gout. No signs of gout flares. ? Continued home ALLOPURINOL 200 mg daily Health maintenance Diet: N.p.o. for now, cardiac GI prophylaxis: PROTONIX DVT prophylaxis: LOVENOX Antibiotics: Not indicated CODE STATUS: Full code Disposition: Dental Surgery Doctor Patient case was discussed with attending, Hugh Pereira MD and senior residents Dr. Gerber and Dr. Sarkar. Wild Navarro, PGYI Senior Resident Attestation: The patient is a 58-year-old male with significant past medical history of hypertension, hyperlipidemia, CAD with CABG 2 years ago who presented with substernal chest pain that started this morning. He reported the pain has been radiating to bilateral arm and was relieved after taking nitroglycerin at home. He has been in a lot of stress recently, and has been taking clonazepam 1 mg daily at night. In the ED, his vitals were stable, and troponins initially 0.097 that trended up to 15.7 and was presumed to be having NSTEMI, but EKG was unremarkable. Personnel Security Assistant Dr. Tian was consulted, who recommended 120 Mg subcutaneous twice daily and cardiac cath in the a.m. The patient will be continued on aspirin 325 Mg and clopidogrel 75 Mg daily. I discussed with and supervised the nutrition intern physician involved in the care of this patient. I personally saw and examined the patient and discussed the assessment and plan with the entire medicine team, including my attending. I agree with the assessment and plan as documented above. Yoni Prescott MD PGY2 Internal Medicine Attending Provider Attestation/Addendum I have examined the patient, reviewed labs and imaging findings, discussed the case with the resident(s), and reviewed entered orders. I agree with the plan of care as outlined in this note, with these additional summaries/recommendations: NSTEMI Type I vs Type II Hx of CAD s/p CABG Presented with typical chest pain. Given typical features and patient's CAD history, this is concerning for ACS or plaque rupture TANA score 4 points indicating 20% risk at 14 days of all cause mortality Judy score: 93 points indicating 3% probability of from admission to 6 months EKG showed nonspecific ST changes Workup: Telemetry, troponin until downtrending, serial EKGs, TTE CAD risk factor screening: A1c, lipid panel, TSH, U tox Treatment: Titrate O2 as needed for symptoms Antiplatelet: Patient took 325 mg aspirin prior to arrival and was given loading dose of Plavix 300 mg Anticoagulation: Therapeutic Lovenox 120 mcg subcutaneous twice daily Cardiac remodeling prevention: Metoprolol tartrate 25 mg p.o. x 1. Will start beta-deya scheduled tomorrow. We will hold off starting BEN or ARB at this time given NIRAV. IV morphine as needed for chest plan or nitroglycerin as needed for chest pain and blood pressure can tolerate N.p.o. after midnight for cardiac catheterization in a.m. # Acute kidney injury Minimal. Creatinine 1.4 and BUN 18. Likely related to prerenal azotemia. We will attempt to limit nephrotoxic agents and renally dose medications as tolerated. Repeat renal panel in AM. # Dyslipidemia Lipid panel ordered Continue atorvastatin [address] at [address] Pereira
--- NOTE | 2024-07-11 17:58 | PC.NURSE ---
Troponin that was drawn at 1530 not yet resulted, I called Lab and spoke with Saul who stated, am shift didn't run it, it will be ready in 5 to 10 minutes. Charge nurse Deja Made aware.
[2024-07-11 18:31] LABS: Troponin I > 25.000 ng/mL (0.0-0.045)
--- NOTE | 2024-07-11 20:02 | PC.NURSE ---
In to assess pt at this time. pt lying in gurney comfortable. NAD. updated pt on plan of care. call light within reach. at bedside. Pt care on going at this time.
[2024-07-11] MEDS: clonazePAM 0.5 MG TABLET 1 MG PO (22:02)
[2024-07-11] MEDS: ENOXAPARIN SOD INJ 100 MG/ML SYRINGE 120 MG SC (22:03)
[2024-07-11] MEDS: ATORVASTATIN CALCIUM 20 MG TABLET 40 MG PO (22:03)
[2024-07-11] MEDS: Lisinopril 20 MG TABLET 40 MG PO (22:20)
[2024-07-11 23:46] LABS: Troponin I 36.831 ng/mL (0.0-0.045)
[2024-07-12] VITALS (18 sets, daily range): BP systolic 108–162; BP diastolic 76–97; PULSE 60–111; RESP 13–22; TEMP 35.9–36.9; O2SAT 93–98; BMI 35.9
[2024-07-12 06:18] LABS: Basophils % (Auto) 0 % (0-2.5); Eosinophils # (Auto) 0.3 Thou/mm3 (0.0-0.5); Eosinophils % (Auto) 4 % (0-10); Hematocrit 43.1 % (41.0-53.0); Hemoglobin 15.2 g/dL (13.5-16.0); Immature Granulocytes % (Auto) 1 % (0-0); Immature Granulocytes Auto 0.04 Thou/mm3 (0.00-0.00); Lymphocytes # (Auto) 1.6 Thou/mm3 (1.0-4.8); Lymphocytes % (Auto) 20 % (10-50); Mean Corpuscular HGB Conc 35.3 g/dl (31.0-37.0); Mean Corpuscular Hemoglobin 31.5 pg (25.0-35.0); Mean Corpuscular Volume 89 fL (80-100); Monocytes # (Auto) 0.9 Thou/mm3 (0.0-0.8); Monocytes % (Auto) 11 % (0-12); Neutrophils # (Auto) 5.1 Thou/mm3 (1.8-7.7); Neutrophils % (Auto) 64 % (37-80); Nucleated Red Blood Cell % 0 /100 WBC (0); Platelet Count 200 Thou/mm3 (140-440); RDW Standard Deviation 40.6 fL (35.1-43.9); Red Blood Count 4.82 Miln/mm3 (4.50-5.90); White Blood Count 7.9 Thou/mm3 (3.8-10.6)
[2024-07-12 07:16] LABS: Alanine Aminotransferase 40 U/L (10-49); Albumin, Serum 4.2 gm/dL (3.5-5.0); Albumin/Globulin Ratio 1.9 (1.2-2.2); Alkaline Phosphatase 68 U/L (46-116); Anion Gap 8 (7-16); Aspartate Amino Transferase 117 U/L (0-34); BUN/Creatinine Ratio 12 Ratio (12-20); Blood Urea Nitrogen 15 mg/dL (9-23); Calcium 9.4 mg/dL (8.3-10.6); Calcium (Corrected) 9.4 mg/dL (8.5-10.1); Carbon Dioxide 26.9 mMol/L (20.0-31.0); Chloride 103 mMol/L (98-107); Creatinine (Component) 1.3 mg/dL (0.6-1.3); Estimated Creatinine Clearance 84.2 mL/min (>60); Globulin 2.2 gm/dL (2.3-3.5); Glucose 127 mg/dL (74-106); Magnesium 2.1 mg/dL (1.6-2.6); Osmolality,Calculated 278 (275-295); Phosphorous 3.2 mg/dL (2.4-5.1); Sodium 138 mMol/L (136-145); Total Protein 6.4 gm/dL (5.7-8.2); eGFR > 60 See Note
[2024-07-12 07:19] LABS: Troponin I 18.684 ng/mL (0.0-0.045)
[2024-07-12] MEDS: HYDROcodone/APAP 5/325 TABLET 1 TAB PO (10:32)
--- NOTE | 2024-07-12 10:55 | ESPR_ITS ---
<Statement entered by Silke Keating MD - 07/12/24 18:23> Patient underwent Cath today, which showed Severe multivessel coronary artery disease, ischemic cardiomyopathy, ejection fraction 30% to 35%,Elevated left ventricular end-diastoic pressure with left ventricular dysfunction.Multivessel coronary artery disease,right coronary artery, subtotal occlusion, 99% stenosis with heavy calcification, complex plaque, underwent successful PCI stent placement. will continue bumex and spirinaloctone with DAPT aspirin and plavix for 12 months. I discussed with and supervised my co-resident involved in the care of this patient. I agree with the assessment and plan as documented above. Silke Keating,PGY-3 Disclaimer: Despite multiple revisions, due to the dictation software being used, the document below may not be free of grammatical errors including phonetic/typographic errors. However, this does not deter from our commitment to providing health care in the patient's best interest in mind Documentation for date of: 07/12/24 Subjective Subjective Interval history: No reported acute overnight events. I saw patient after [facility]. He tolerated procedure okay. No complications during procedure. Denies fever, chills, headaches, chest pain, sob, cough, GI or urinary symptoms. Exam Vital Signs Temp Pulse Resp BP Pulse Ox O2 Del Method 98.3 F 85 17 129/90 H 95 Room Air 07/12/24 09:59 07/12/24 10:15 07/12/24 10:15 07/12/24 10:15 07/12/24 10:15 07/12/24 10:15 Narrative Exam GENERAL * Normal appearing middle-aged male, NAD, on nasal cannula. HEENT * NCAT.?IDALIA. Oral mucosa is moist. Patent Nares NECK * Supple, nontender, no thyromegaly, no meningismus, no JVD, no step offs CHEST * RRR, no m/g/r * CTAB, no w/r/r. Symmetrical chest rise. No intercostal subcostal retraction * Atraumatic, nontender, no crepitus, symmetrical expansion. ABDOMEN * Soft, flat, nontender. No guarding/rebound tenderness/masses. * Bowel sounds presents EXTREMITIES * Nontender, no cyanosis, no edema * No edema/cyanosis.? SKIN * Warm and dry, no jaundice/rashes. NEUROMUSCULAR * No lumbar or midline, no CVA, no paraspinal muscle spasm or tenderness. * Moves all 4 extremities well, with full ROM and good CSM. * [place] x4, CN II-XII grossly intact. * No focal neurologic deficits. PSYCHIATRY * Normal mood and affect, cooperative, no SI or HI or hallucinations. Objective Labs 07/13/24 04:43 07/13/24 04:43 Labs: Laboratory Results - last 24 hr 07/11/24 07/11/24 07/11/24 10:32 15:30 22:34 WBC RBC Hgb Hct MCV MCH MCHC RDW Std Deviation Plt Count Neut % (Auto) Lymph % (Auto) [place] % (Auto) Eos % (Auto) Baso % (Auto) Neut # (Auto) Lymph # (Auto) [place] # (Auto) Eos # (Auto) Baso # (Auto) Immature Gran # (Auto) Absolute Nucleated RBC Immature Gran % Nucleated RBC % Sodium Potassium Chloride Carbon Dioxide Anion Gap BUN Creatinine Estim Creat Clear Calc eGFR BUN/Creatinine Ratio Glucose Calculated Osmolality Calcium Corrected Calcium Phosphorus Magnesium Total Bilirubin AST ALT Alkaline Phosphatase Troponin I 15.700 H* D > 25.000 H* D 36.831 H* D Total Protein Albumin Globulin Albumin/Globulin Ratio 07/12/24 05:50 WBC 7.9 RBC 4.82 Hgb 15.2 Hct 43.1 MCV 89 MCH 31.5 MCHC 35.3 RDW Std Deviation 40.6 Plt Count 200 Neut % (Auto) 64 Lymph % (Auto) 20 [place] % (Auto) 11 Eos % (Auto) 4 Baso % (Auto) 0 Neut # (Auto) 5.1 Lymph # (Auto) 1.6 [place] # (Auto) 0.9 H Eos # (Auto) 0.3 Baso # (Auto) 0.0 Immature Gran # (Auto) 0.04 H Absolute Nucleated RBC 0.00 Immature Gran % 1 H Nucleated RBC % 0 Sodium 138 Potassium 4.0 D Chloride 103 Carbon Dioxide 26.9 Anion Gap 8 BUN 15 Creatinine 1.3 Estim Creat Clear Calc 84.2 eGFR > 60 BUN/Creatinine Ratio 12 Glucose 127 H D Calculated Osmolality 278 Calcium 9.4 Corrected Calcium 9.4 Phosphorus 3.2 Magnesium 2.1 Total Bilirubin 1.0 D AST 117 H ALT 40 Alkaline Phosphatase 68 D Troponin I 18.684 H* D Total Protein 6.4 Albumin 4.2 Globulin 2.2 L Albumin/Globulin Ratio 1.9 Quality Measures Quality Measures none Assessment & Plan Assessment Current Active Medications: Generic Name Dose Route Start Last Admin Trade Name Freq PRN Reason Stop Dose Admin Acetaminophen 650 mg 07/11/24 08:48 Acetaminophen 325 Mg Tablet PO 08/10/24 08:47 Q6H PRN PAIN SCALE 1-3 (mild Acetaminophen 650 mg 07/11/24 08:48 Acetaminophen 325 Mg Tablet PO 08/10/24 08:47 Q6H PRN Fever >100 Hydrocodone Bitart/Acetaminophen 1 tab 07/11/24 08:48 07/11/24 23:10 Hydrocodone/Apap 10/325 Tab PO 07/16/24 08:47 1 tab Q4HR PRN Administration PAIN SCALE 7-10 (Severe Aspirin 325 mg 07/12/24 09:00 Aspirin 325 Mg Tablet PO 08/11/24 08:59 QDAY RODDY Atorvastatin Calcium 40 mg 07/11/24 21:00 07/11/24 22:03 Atorvastatin Calcium 20 Mg Tablet PO 08/10/24 20:59 40 mg HS RODDY Administration Clonazepam 1 mg 07/11/24 21:00 07/11/24 22:02 Clonazepam 0.5 Mg Tablet PO 07/16/24 20:59 1 mg HS RODDY Administration Clopidogrel Bisulfate 75 mg 07/12/24 09:00 Clopidogrel Bisulfate 75 Mg Tablet PO 08/11/24 08:59 QDAY RODDY Loratadine 10 mg 07/11/24 16:44 Loratadine 10 Mg Tablet PO 08/10/24 16:43 QDAY PRN Allergy Symptoms Ondansetron HCl 4 mg 07/11/24 08:48 Ondansetron Inj 2 Mg/Ml Inj 2 Ml IV 08/10/24 08:47 Q6H PRN NAUSEA OR VOMITING Protocol Oxycodone/Acetaminophen 1 tab 07/11/24 08:48 Oxycodone/Apap 5/325 Tablet PO 07/16/24 08:47 Q6H PRN PAIN SCALE 4-6 (Moderate Pantoprazole Sodium 40 mg 07/11/24 09:00 07/11/24 09:01 Pantoprazole Inj 40 Mg Vial IVP 08/10/24 08:59 40 mg QDAY RODDY Administration Plan In summary: 58-year-old male with PMH of HTN, HLD, CAD with CABG, presenting with acute substernal chest pain. Admitted for acute coronary syndrome. Scheduled for [facility] today. Appreciate recommendation from cardiology. NSTEMI CAD s/p CABG HTN, HLD History of CAD with CABG on daily ASPIRIN 325 mg. Presenting with acute episode of chest pain starting this morning, improved shortly after ASPIRIN and NITROGLYCERIN. Troponin 0.097 on admission, peaked at 36, then continued downtrending. EKG showed sinus rhythm, no acute ST changes. Given MORPHINE, METOPROLOL, loading dose CLOPIDOGREL to ENOXAPARIN. TG 415, cholesterol 178, LDL performed (TG t0o high). TSH/free T4 WNL. A1c 5.9. Currently BP 141/96, HR 70. Denies chest pain or chest discomfort. Pending [facility] [facility]. ? Admission telemetry ? Continue CLOPIDOGREL 75 mg daily ? Continue home ATORVASTATIN 40 mg, may need to increase to 80 mg ? Continue ASPIRIN 325 mg daily ? Discontinued ENOXAPARIN on 120 mg BID (by cardiology team) ? Holding home METOPROLOL 50 mg BID AND LISINOPRIL 40 mg daily till further recs from cardiology ? Pending cardiology recommendations Generalized anxiety disorder Reports being more anxious lately as a result of work at home stress. No suicidal or homicidal ideation. ? Continue home CLONAZEPAM 1 mg HS Gout History of gout. No signs of gout flares. ? Continued home ALLOPURINOL 200 mg daily Health maintenance Diet: N.p.o. for now, cardiac GI prophylaxis: PROTONIX DVT prophylaxis: LOVENOX Antibiotics: Not indicated CODE STATUS: Full code Disposition: [facility] Patient case was discussed with attending, Hugh Pereira MD and senior residents Dr. Keating and Dr. Prescott. Wild Navarro DO PGYI Attending Provider Attestation/Addendum I have examined the patient, reviewed labs and imaging findings, discussed the case with the resident(s), and reviewed entered orders. I agree with the plan of care as outlined in this note, with these additional summaries/recommendations: NSTEMI Type I vs Type II Hx of CAD s/p CABG Presented with typical chest pain. Given typical features and patient's CAD history, this is concerning for ACS or plaque rupture TANA score 4 points indicating 20% risk at 14 days of all cause mortality Judy score: 93 points indicating 3% probability of from admission to 6 months EKG showed nonspecific ST changes Workup: Telemetry, troponin until downtrending, serial EKGs, TTE CAD risk factor screening: A1c, lipid panel, TSH, U tox Treatment: Titrate O2 as needed for symptoms Antiplatelet: Patient took 325 mg aspirin prior to arrival and was given loading dose of Plavix 300 mg Anticoagulation: Therapeutic Lovenox 120 mcg subcutaneous twice daily Cardiac remodeling prevention: Metoprolol tartrate 25 mg p.o. x 1. Will start beta-deya scheduled tomorrow. We will hold off starting BEN or ARB at this time given NIRAV. IV morphine as needed for chest plan or nitroglycerin as needed for chest pain and blood pressure can tolerate Plan: Patient seen at bedside. Discussed that he will go for cardiac catheterization today and we will follow-up postoperatively with cardiac recommendations. # Acute kidney injury- Resolved Minimal. On admission: Creatinine 1.4 and BUN 18. Likely related to prerenal azotemia. We will attempt to limit nephrotoxic agents and renally dose medications as tolerated. Repeat renal panel in AM. Plan: NIRAV now resolved. Continue to monitor. # Dyslipidemia Continue atorvastatin [address] at bedtime Dr. Pereira
[2024-07-12] MEDS: oxyCODONE/APAP 5/325 TABLET 1 TAB PO (12:47)
[2024-07-12] MEDS: PANTOPRAZOLE INJ 40 MG VIAL IVP (15:16)
--- NOTE | 2024-07-12 15:27 | ESOP_ITS ---
RE: SARAH MIRANDA : 1965 DATE OF OPERATION: 07/12/2024 PROCEDURE PERFORMED: 1. Emergency diagnostic left heart cardiac catheterization, selective coronary angiogram, left ventricular angiogram, selective vein bypass graft angiogram, CPT 95725. 2. Selective cannulation of left internal mammary artery, second diagonal branch from the aorta, left internal mammary angiogram, CPT 70221. 3. Emergency percutaneous coronary intervention, PTCA, and coronary stent placement of the mid right coronary artery, culprit lesion, 99% stenosis in the mid right coronary artery, underwent successful PCI, stent placement of the right coronary artery using 4 mm x 15 mm Megatron stent, post dilated with 5.5 mm balloon. Preprocedure stenosis 99% and postprocedure 0%. Preprocedure TANA flow 2. Postprocedure TANA flow 3. Diagnosis is acute myocardial infraction, CPT 99763. 4. Iliofemoral angiogram followed by Angioseal deployment. 5. Conscious sedation 1 hour duration. 6. Ultrasound guidance access of the right femoral artery. DIAGNOSES: Coronary artery disease, acute myocardial infarction, status post bypass graft surgery. HISTORY AND INDICATIONS: The patient is a 58-year-old male with known history of CAD, status post previous myocardial infarction who underwent coronary artery bypass graft surgery x3 back in 2013, 11 years ago. He was doing well until recently. He has had recurrent shortness of breath, presented to the hospital with acute myocardial infarction, severe chest pain, crushing chest pain lasted several hours, troponin elevation up to 15, and EKG showed nonspecific ST changes. Because of acute myocardial infarction with persistent angiogram elevation, coronary angiogram, cardiac catheterization was recommended for assessment of possible [employer] intervention with the diagnosis of acute myocardial infarction. DESCRIPTION OF PROCEDURE: The patient was brought to cardiac catheterization laboratory where he was given 2 mg Versed for sedation. The right femoral approach was taken. Right femoral artery was cannulated with micropuncture technique using ultrasound guidance. Ultrasound guidance was used and 6-Syrian sheath was introduced. Selective right coronary angiogram performed by FR4 diagnostic catheter. Selective bypass graft angiogram was performed by LCB diagnostic catheter. Left coronary angiogram performed by JL5 diagnostic catheter. Left internal mammary angiogram performed by 6-Syrian FR4 diagnostic catheter. Selective cannulation of left internal membrane artery, second diagonal branch from the aorta and left internal mammary angiogram performed. Left heart catheterization was performed by 5-Syrian FR4 diagnostic catheter. Left ventricular angiogram performed by hand injection method. Diagnostic procedure was tolerated very well. Intervention was undertaken. Diagnostic procedure showed following findings. Hemodynamics: Left ventricular pressure measured to be 120, EDP is 10, end diastolic pressure 78 mmHg. Aortic pressure 130/80, no gradient across the aortic valve. Left ventricular angiogram showed evidence of moderate to severe global hypokinesis. Ejection fraction approximately 30% to 35%. Also elevated LVEDP suggestive of heart failure. Coronary angiogram showed following findings. [place] right coronary artery is large and showed _large mid RCA showed 99% stenosis with heavy calcification. This also showed mild amount of plaque. No significant lesion. Proximal ostial showed plaque with extensive ectasia. PDA, PL branches showed atherosclerotic plaque. No significant stenosis. Left coronary system: Left main coronary artery showed 80% distal left main stenosis. Left anterior descending artery occluded totally in the mid segment after diagonal branch. Circumflex artery totally occluded in the proximal segment. Vein bypass graft to the circumflex artery is widely patent, giving off distal PL branches. Left internal mammary artery, LAD is widely patent. No significant stenosis. It is attached to the mid LAD, feels excellent. Following the diagnostic procedure, intervention was undertaken. The patient was given IV heparin total of 10,000 units plus additional 1000 units and PCI was undertaken. The patient was given loading dose of Plavix 300 mg in addition to his aspirin and Plavix already on. A 6-Syrian FR4 guiding catheter used to cannulate the right coronary artery, 0.014 run through guidewire was used to cross the lesion successfully. Pre-dilation initially performed with 3 mm Emerge balloon, could not advance the stent because of the severe stenosis. Went ahead with a 4 mm balloon. A 4 mm NC balloon was used to dilate the lesion aggressively with 14 atmosphere pressure ,subsequently post stent deployment angioplasty performed using a 5.5 mm noncompliant balloon and the stent was dilated successfully with 14 atmospheric pressure. Final angiogram showed widely patent right carotid artery with no residual stenosis. TANA flow improved to 3. Iliofemoral angiogram performed and 6-Syrian _ANGIOSEAL was used and hemostasis secured. SUMMARY OF FINDINGS: 1. Severe multivessel coronary artery disease, ischemic cardiomyopathy, ejection fraction 30% to 35%. 2. Elevated left ventricular end-diastoic pressure with left ventricular dysfunction. 3. Multivessel coronary artery disease. Evidence of [place] to LAD widely patent. Vein graft to circumflex artery, widely patent. 4. Culprit vessel, right coronary artery, subtotal occlusion, 99% stenosis with heavy calcification, complex plaque, underwent successful PCI stent placement, placement of drug eluted stent 4 mm x 15-mm Megatron stent for radial stent and dilated using 5.5 mm AC balloon with excellent results. TANA flow was improved from preprocedure 2 to postprocedure 3. COMPLICATIONS: None. Angioseal successfully deployed. No complications. The patient will be continued on aspirin and Plavix. We will also initiate Lasix recommended diuretic therapy, spironolactone and Lasix, spironolactone and bumetanide 2 mg daily, spironolactone 25 mg daily for congestive heart failure symptoms and elevated EDP. Probably keep him 2 days in the hospital and plan to discharge him home. He will be continued on dual antiplatelet drug therapy, DAPT, aspirin, and Plavix for 12 months. DT: 13:18:34 TT: 14:26:00 Ref: [id number] - TID: [id number] MTDD
[2024-07-12] MEDS: HYDROcodone/APAP 10/325 TAB PO (17:19)
[2024-07-12] MEDS: SPIRONOLACTONE 25 MG TABLET PO (17:19)
--- NOTE | 2024-07-12 18:46 | PC.NURSE ---
Notified Dr. Prescott of weak pedal pulse post procedure through R groin, patient has no numbness/ tingling/ pain, no new orders.
[2024-07-12] MEDS: ATORVASTATIN CALCIUM 20 MG TABLET 40 MG PO (20:35)
[2024-07-12] MEDS: clonazePAM 0.5 MG TABLET 1 MG PO (20:35)
[2024-07-13] VITALS (9 sets, daily range): BP systolic 127–138; BP diastolic 78–97; PULSE 73–95; RESP 12–23; TEMP 36.3–36.7; O2SAT 94–98; BMI 35.2
[2024-07-13] MEDS: PANTOPRAZOLE INJ 40 MG VIAL IVP ×2 (00:43→09:09)
[2024-07-13 05:34] LABS: Basophils % (Auto) 0 % (0-2.5); Eosinophils # (Auto) 0.1 Thou/mm3 (0.0-0.5); Eosinophils % (Auto) 1 % (0-10); Hematocrit 44.5 % (41.0-53.0); Hemoglobin 15.6 g/dL (13.5-16.0); Immature Granulocytes % (Auto) 1 % (0-0); Immature Granulocytes Auto 0.06 Thou/mm3 (0.00-0.00); Lymphocytes # (Auto) 1.5 Thou/mm3 (1.0-4.8); Lymphocytes % (Auto) 13 % (10-50); Mean Corpuscular HGB Conc 35.1 g/dl (31.0-37.0); Mean Corpuscular Hemoglobin 31.3 pg (25.0-35.0); Mean Corpuscular Volume 89 fL (80-100); Monocytes % (Auto) 9 % (0-12); Neutrophils # (Auto) 8.9 Thou/mm3 (1.8-7.7); Neutrophils % (Auto) 77 % (37-80); Nucleated Red Blood Cell % 0 /100 WBC (0); Platelet Count 203 Thou/mm3 (140-440); RDW Standard Deviation 41.2 fL (35.1-43.9); Red Blood Count 4.98 Miln/mm3 (4.50-5.90); White Blood Count 11.5 Thou/mm3 (3.8-10.6)
[2024-07-13 06:07] LABS: Alanine Aminotransferase 32 U/L (10-49); Albumin, Serum 4.4 gm/dL (3.5-5.0); Albumin/Globulin Ratio 1.8 (1.2-2.2); Alkaline Phosphatase 71 U/L (46-116); Anion Gap 8 (7-16); Aspartate Amino Transferase 66 U/L (0-34); BUN/Creatinine Ratio 11 Ratio (12-20); Bilirubin,Total 1.1 mg/dL (0.3-1.2); Blood Urea Nitrogen 16 mg/dL (9-23); Calcium 9.4 mg/dL (8.3-10.6); Calcium (Corrected) 9.4 mg/dL (8.5-10.1); Carbon Dioxide 26.8 mMol/L (20.0-31.0); Chloride 101 mMol/L (98-107); Creatinine (Component) 1.4 mg/dL (0.6-1.3); Estimated Creatinine Clearance 77.5 mL/min (>60); Globulin 2.5 gm/dL (2.3-3.5); Glucose 128 mg/dL (74-106); Magnesium 2.2 mg/dL (1.6-2.6); Osmolality,Calculated 275 (275-295); Phosphorous 3.3 mg/dL (2.4-5.1); Sodium 136 mMol/L (136-145); Total Protein 6.9 gm/dL (5.7-8.2); eGFR 58 See Note
[2024-07-13] MEDS: BUMETANIDE 0.5 MG TABLET 2 MG PO (09:08)
[2024-07-13] MEDS: CLOPIDOGREL BISULFATE 75 MG TABLET PO (09:08)
[2024-07-13] MEDS: Aspirin 325 MG TABLET PO (09:08)
[2024-07-13] MEDS: SPIRONOLACTONE 25 MG TABLET PO (09:09)
[2024-07-13] MEDS: METOPROLOL SUCCINATE XL 25 MG TABCR 100 MG PO (11:58)
--- NOTE | 2024-07-13 14:07 | ESPR_ITS ---
<Statement entered by Zeenat Tian MD - 07/15/24 14:54> The patient is evaluated by me along with resident physician underwent coronary stent placement of the right coronary complex intervention for acute myocardial infarction clinically doing better some shortness of breath no chest pain today we will keep him till tomorrow morning. Feels well discharge home tomorrow medical management including dual antiplatelet drug therapy aspirin Plavix. I agree with the treatment plan recommendation as documented by PGY 2 Dr. Lopez Documentation for date of: 07/13/24 Subjective Subjective Interval history: Overnight, no acute events reported. Patient seen and examined at bedside. Patient denies any complaints at this time. Patient blood pressure has been stable on spironolactone. Currently held his home lisinopril due to increase in NIRAV. Will decrease patient's daily diuretic to 1 mg p.o. daily. Continue with aspirin 325 mg and Plavix 75 mg daily. Exam Vital Signs Temp Pulse Resp BP Pulse Ox O2 Del Method 97.9 F 88 18 138/91 H 97 Room Air 07/13/24 12:00 07/13/24 12:00 07/13/24 12:00 07/13/24 12:00 07/13/24 12:07/13/24 12:00 Narrative Exam General Appearance: Pt in no acute distress laying comfortably in bed. HEENT: NC/AT, no scleral icterus, no conjunctival pallor, MMM Lungs: CTAB, no wheezes or crackles appreciated CVS: RRR, S1/S2 heard, no murmurs or rubs appreciated ABD: Soft, non-tender, non-distended, BS + in all 4 quadrants EXT: no deformity/edema/lesions/cyanosis/clubbing, radial pulses 2+ BL, DP pulses 2 + BL SKIN: Skin exam normal without any rashes. Neuro: A&O x 3. No gross neurological deficits. Motor and sensory grossly intact in B/L UL and LL. Psych: Appropriate mood and affect Objective Labs 07/13/24 04:43 07/13/24 04:43 Labs: Laboratory Results - last 24 hr 07/12/24 07/13/24 10:27 04:43 WBC 11.5 H D RBC 4.98 Hgb 15.6 Hct 44.5 MCV 89 MCH 31.3 MCHC 35.1 RDW Std Deviation 41.2 Plt Count 203 Neut % (Auto) 77 Lymph % (Auto) 13 [place] % (Auto) 9 Eos % (Auto) 1 Baso % (Auto) 0 Neut # (Auto) 8.9 H Lymph # (Auto) 1.5 [place] # (Auto) 1.0 H Eos # (Auto) 0.1 Baso # (Auto) 0.0 Immature Gran # (Auto) 0.06 H Absolute Nucleated RBC 0.00 Immature Gran % 1 H Nucleated RBC % 0 Activated Clotting Time 260.0 H Sodium 136 Potassium 4.0 Chloride 101 Carbon Dioxide 26.8 Anion Gap 8 BUN 16 Creatinine 1.4 H Estim Creat Clear Calc 77.5 eGFR 58 L BUN/Creatinine Ratio 11 L Glucose 128 H Calculated Osmolality 275 Calcium 9.4 Corrected Calcium 9.4 Phosphorus 3.3 Magnesium 2.2 Total Bilirubin 1.1 AST 66 H ALT 32 Alkaline Phosphatase 71 Total Protein 6.9 Albumin 4.4 Globulin 2.5 Albumin/Globulin Ratio 1.8 Quality Measures Quality Measures none Assessment & Plan Assessment Current Active Medications: Generic Name Dose Route Start Last Admin Trade Name Freq PRN Reason Stop Dose Admin Acetaminophen 650 mg 07/11/24 08:48 Acetaminophen 325 Mg Tablet PO 08/10/24 08:47 Q6H PRN PAIN SCALE 1-3 (mild Acetaminophen 650 mg 07/11/24 08:48 Acetaminophen 325 Mg Tablet PO 08/10/24 08:47 Q6H PRN Fever >100 Hydrocodone Bitart/Acetaminophen 1 tab 07/11/24 08:48 07/12/24 17:19 Hydrocodone/Apap 10/325 Tab PO 07/16/24 08:47 1 tab Q4HR PRN Administration PAIN SCALE 7-10 (Severe Aspirin 325 mg 07/12/24 09:00 07/13/24 09:08 Aspirin 325 Mg Tablet PO 08/11/24 08:59 325 mg QDAY RODDY Administration Atorvastatin Calcium 40 mg 07/11/24 21:00 07/12/24 20:35 Atorvastatin Calcium 20 Mg Tablet PO 08/10/24 20:59 40 mg HS RODDY Administration Bumetanide 1 mg 07/14/24 09:00 Bumetanide 0.5 Mg Tablet PO 08/13/24 08:59 QDAY RODDY Clonazepam 1 mg 07/11/24 21:00 07/12/24 20:35 Clonazepam 0.5 Mg Tablet PO 07/16/24 20:59 1 mg HS RODDY Administration Clopidogrel Bisulfate 75 mg 07/12/24 09:00 07/13/24 09:08 Clopidogrel Bisulfate 75 Mg Tablet PO 08/11/24 08:59 75 mg QDAY RODDY Administration Loratadine 10 mg 07/11/24 16:44 Loratadine 10 Mg Tablet PO 08/10/24 16:43 QDAY PRN Allergy Symptoms Metoprolol Succinate 100 mg 07/13/24 11:00 07/13/24 11:58 Metoprolol Succinate Xl 25 Mg Tabcr PO 08/12/24 10:59 100 mg QDAY RODDY Administration Ondansetron HCl 4 mg 07/11/24 08:48 Ondansetron Inj 2 Mg/Ml Inj 2 Ml IV 08/10/24 08:47 Q6H PRN NAUSEA OR VOMITING Protocol Oxycodone/Acetaminophen 1 tab 07/11/24 08:48 07/12/24 12:47 Oxycodone/Apap 5/325 Tablet PO 07/16/24 08:47 1 tab Q6H PRN Administration PAIN SCALE 4-6 (Moderate Pantoprazole Sodium 40 mg 07/11/24 09:00 07/13/24 09:09 Pantoprazole Inj 40 Mg Vial IVP 08/10/24 08:59 40 mg QDAY RODDY Administration Spironolactone 25 mg 07/12/24 16:00 07/13/24 09:09 Spironolactone 25 Mg Tablet PO 08/11/24 15:59 25 mg QDAY RODDY Administration Plan Mr. Bales is a 58-year-old male with past medical history significant for CAD status post CABG, hypertension, hyperlipidemia, prediabetes, anxiety, arthritis who presented to the ED with severe, dull chest pain and admitted for NSTEMI workup found to have severe multivessel CAD. #Severe multivessel coronary artery disease #Ischemic cardiomyopathy, ejection fraction 30% to 35% #RCA 99% stenosis s/p drug-eluded stent #HTN #HLD Patient has a history of CAD with CABG in 2012 on daily aspirin 325 mg. Patient had an episode of chest pain starting early this morning that was dull and tingling in nature which woke him up. Patient's pain improved after getting morphine IV in the ED. Patient also received nitroglycerin, his home aspirin at home as well as morphine in the ED, pantoprazole, and loading dose Plavix. Troponins up trended from 0.097-15.7 after 3 hours. EKG continues to be normal sinus rhythm specific ST-T changes. Patient also received therapeutic enoxaparin 1.5 mg subcu x 1. Triglycerides were 415. Patient taken to cathodic protection technician yesterday, and [place] to LAD widely patent as well as veing graft to circumflex artery patent. RCA was 99% stenosed with heavy calcification, and underwent a successful PCI drug-eluded stent placement, improving TANA flow from 2 to 3. ? Continue to monitor signs and symptoms and telemetry ? Continue with Plavix 75 mg daily, Aspirin 325 mg QD for at least 1 year and atorvastatin 40 mg p.o. at bedtime ? Maintain potassium above 4 and magnesium above 2 - Continue with Spironolactone 25mg QD to help with his CHF and elevated EDP - Will decrease home Bumex 2mg to 1mg QD Rest of problems per primary team #Generalized anxiety disorder #Gout #Anxiety Patient's plan and care discussed with my attending, Dr. Jaylan Lopez MD PGY-2
--- NOTE | 2024-07-13 15:23 | ESPR_ITS ---
Documentation for date of: 07/13/24 Subjective Subjective Interval history: Patient was examined bedside this morning, he was comfortably sleeping in bed. Denied any chest pain. He underwent cardiac cath yesterday which showed Severe multivessel coronary artery disease, ischemic cardiomyopathy, ejection fraction 30% to 35%,Elevated left ventricular end-diastoic pressure with left ventricular dysfunction.Multivessel coronary artery disease,right coronary artery, subtotal occlusion, 99% stenosis with heavy calcification, complex plaque, underwent successful PCI stent placement. will continue bumex and spirinaloctone with DAPT aspirin and plavix for 12 months. Exam Vital Signs Temp Pulse Resp BP Pulse Ox O2 Del Method 97.9 F 88 18 138/91 H 97 Room Air 07/13/24 12:00 07/13/24 12:00 07/13/24 12:00 07/13/24 12:00 07/13/24 12:00 07/13/24 12:00 Narrative Exam GENERAL: Comfortable adult seen resting comfortably in hospital bed, no acute distress VITALS: All vitals were reviewed and the pulse ox is 98% on room air HEENT: Normocephalic, atraumatic. Pupils are equal and reactive. Oral mucosa is moist. NECK: Supple, nontender, no JVD CHEST: Symmetrical, atraumatic and with equal expansion ,Nontender on palpation CARDIOVASCULAR: Heart regular rhythm & rate. S1/S2. no murmur or gallop rub or extra beats. LUNGS: Clear to auscultation bilaterally with symmetrical chest rise. No laboring tachypnea or wheezing. No intercostal subcostal retraction. No rales and no rhonchi. ABDOMEN: Soft, flat, nontender to palpation, no guarding or rebound tenderness. Active and normal bowel sounds. EXTREMITIES:Moves all 4 extremities,No B/L LE edema. SKIN: Warm and dry, no jaundice or rashes noted. NEURO: Patient is AO x 3, Cranial nerves II through XII grossly intact. There is no focal neurologic deficits noted. PSYCHIATRIC: Patient is in normal mood, cooperative, no SI or HI or hallucinations. Objective Labs 07/13/24 04:43 07/13/24 04:43 Labs: Laboratory Results - last 24 hr 07/13/24 04:43 WBC 11.5 H D RBC 4.98 Hgb 15.6 Hct 44.5 MCV 89 MCH 31.3 MCHC 35.1 RDW Std Deviation 41.2 Plt Count 203 Neut % (Auto) 77 Lymph % (Auto) 13 [place] % (Auto) 9 Eos % (Auto) 1 Baso % (Auto) 0 Neut # (Auto) 8.9 H Lymph # (Auto) 1.5 [place] # (Auto) 1.0 H Eos # (Auto) 0.1 Baso # (Auto) 0.0 Immature Gran # (Auto) 0.06 H Absolute Nucleated RBC 0.00 Immature Gran % 1 H Nucleated RBC % 0 Sodium 136 Potassium 4.0 Chloride 101 Carbon Dioxide 26.8 Anion Gap 8 BUN 16 Creatinine 1.4 H Estim Creat Clear Calc 77.5 eGFR 58 L BUN/Creatinine Ratio 11 L Glucose 128 H Calculated Osmolality 275 Calcium 9.4 Corrected Calcium 9.4 Phosphorus 3.3 Magnesium 2.2 Total Bilirubin 1.1 AST 66 H ALT 32 Alkaline Phosphatase 71 Total Protein 6.9 Albumin 4.4 Globulin 2.5 Albumin/Globulin Ratio 1.8 Quality Measures Quality Measures none Assessment & Plan Assessment Current Active Medications: Generic Name Dose Route Start Last Admin Trade Name Freq PRN Reason Stop Dose Admin Acetaminophen 650 mg 07/11/24 08:48 Acetaminophen 325 Mg Tablet PO 08/10/24 08:47 Q6H PRN PAIN SCALE 1-3 (mild Acetaminophen 650 mg 07/11/24 08:48 Acetaminophen 325 Mg Tablet PO 08/10/24 08:47 Q6H PRN Fever >100 Hydrocodone Bitart/Acetaminophen 1 tab 07/11/24 08:48 07/12/24 17:19 Hydrocodone/Apap 10/325 Tab PO 07/16/24 08:47 1 tab Q4HR PRN Administration PAIN SCALE 7-10 (Severe Aspirin 325 mg 07/12/24 09:00 07/13/24 09:08 Aspirin 325 Mg Tablet PO 08/11/24 08:59 325 mg QDAY RODDY Administration Atorvastatin Calcium 40 mg 07/11/24 21:00 07/12/24 20:35 Atorvastatin Calcium 20 Mg Tablet PO 08/10/24 20:59 40 mg HS RODDY Administration Bumetanide 1 mg 07/14/24 09:00 Bumetanide 0.5 Mg Tablet PO 08/13/24 08:59 QDAY RODDY Clonazepam 1 mg 07/11/24 21:00 07/12/24 20:35 Clonazepam 0.5 Mg Tablet PO 07/16/24 20:59 1 mg HS RODDY Administration Clopidogrel Bisulfate 75 mg 07/12/24 09:00 07/13/24 09:08 Clopidogrel Bisulfate 75 Mg Tablet PO 08/11/24 08:59 75 mg QDAY RODDY Administration Loratadine 10 mg 07/11/24 16:44 Loratadine 10 Mg Tablet PO 08/10/24 16:43 QDAY PRN Allergy Symptoms Metoprolol Succinate 100 mg 07/13/24 11:00 07/13/24 11:58 Metoprolol Succinate Xl 25 Mg Tabcr PO 08/12/24 10:59 100 mg QDAY RODDY Administration Ondansetron HCl 4 mg 07/11/24 08:48 Ondansetron Inj 2 Mg/Ml Inj 2 Ml IV 08/10/24 08:47 Q6H PRN NAUSEA OR VOMITING Protocol Oxycodone/Acetaminophen 1 tab 07/11/24 08:48 07/12/24 12:47 Oxycodone/Apap 5/325 Tablet PO 07/16/24 08:47 1 tab Q6H PRN Administration PAIN SCALE 4-6 (Moderate Pantoprazole Sodium 40 mg 07/11/24 09:00 07/13/24 09:09 Pantoprazole Inj 40 Mg Vial IVP 08/10/24 08:59 40 mg QDAY RODDY Administration Spironolactone 25 mg 07/12/24 16:00 07/13/24 09:09 Spironolactone 25 Mg Tablet PO 08/11/24 15:59 25 mg QDAY RODDY Administration Plan 58-year-old male with PMH of HTN, HLD, CAD with CABG, presenting with acute substernal chest pain. Admitted for workup for CAD . #Severe multivessel coronary artery disease # Ischemic cardiomyopathy, ejection fraction 30% to 35%. # Elevated left ventricular end-diastoic pressure with left ventricular dysfunction. #RCA 99% stenosis s/p stent #CHF #H/o CAD s/p CABG #HTN -History of CAD with CABG on daily ASPIRIN 325 mg. Presenting with acute episode of chest pain starting this morning, improved shortly after ASPIRIN and NITROGLYCERIN. -EKG showed sinus rhythm, no acute ST changes. -Was given loading dose of levonex in the ED -TANA score 4 points indicating 20% risk at 14 days of all cause mortality -Judy score: 93 points indicating 3% probability of from admission to 6 months -A1c- 5.9, lipid pannel- TG-415 -Cardiology was consulted, Dr. Tian , he underwent cardiac catheter yesterday which showed severe multivessel coronary artery disease, ischemic cardiomyopathy with ejection fraction 30 to 35% -right coronary artery, subtotal occlusion, 99% stenosis with heavy calcification, complex plaque, underwent successful PCI stent placement. -Will continue DTAP aspirin 325 p.o. daily and Plavix 75 Mg daily for least 12 months -Please continue Bumex decreased from 2 Mg to 1 Mg and spironolactone for his congestive heart failure. -Added metoprolol 100 mg daily -Continue statin -held home lisinopril in setting of NIRAV #Mild NIRAV -His creatinine today is 1.4, most likely in the setting of contrast yesterday during -Will continue to monitor # Leukocytosis?mild -His WBC count today was 11.5, most likely reactive -Will continue to monitor # Dyslipidemia Continue atorvastatin 40 mg p.o. at bedtime #Generalized anxiety disorder -Reports being more anxious lately as a result of work at home stress. No suicidal or homicidal ideation. ? Continue home CLONAZEPAM 1 mg HS #Gout -History of gout. No signs of gout flares. ? Continued home ALLOPURINOL 200 mg daily Health maintenance Diet: Cardiac GI prophylaxis: PROTONIX DVT prophylaxis: Heparin Antibiotics: Not indicated CODE STATUS: Full code Disposition: Status postcardiac cath, anticipate discharge in next 24 to 48 hours Patient case was discussed with attending Silke Pereira MD,PGY-3 Attending Provider Attestation/Addendum I have examined the patient, reviewed labs and imaging findings, discussed the case with the resident(s), and reviewed entered orders. I agree with the plan of care as outlined in this note, with these additional summaries/recommendations: NSTEMI Type I Hx of CAD s/p CABG Presented with typical chest pain. Given typical features and patient's CAD history, this is concerning for ACS or plaque rupture TANA score 4 points indicating 20% risk at 14 days of all cause mortality Judy score: 93 points indicating 3% probability of from admission to 6 months EKG showed nonspecific ST changes Workup: Telemetry, troponin until downtrending, serial EKGs, TTE CAD risk factor screening: A1c, lipid panel, TSH, U tox Treatment: Titrate O2 as needed for symptoms Antiplatelet: Aspirin and plavix Anticoagulation: Discontinued Plan: Status post cardiac catheterization on 07/12/2024. Patient was found to have severe multivessel coronary artery disease with culprit vessel being right coronary artery which was 99% stenosed and underwent successful PCI with stent placement. We will continue DAPT. Statin therapy. And started on metoprolol for cardiac remodeling and now heart failure # New onset CHF Echocardiogram showed dilated left ventricle, mild systolic dysfunction, mild global hypokinesis, and EF 40 to 45% Ischemic cardiomyopathy Plan: Does not appear to be in exacerbation at this time. Continue goal- directed medical therapy with spironolactone, metoprolol, and Bumex. We will defer starting BEN/ARB at this time given mild NIRAV. # Acute kidney injury- Minimal. On admission: Creatinine 1.4 and BUN 18. Likely related to prerenal azotemia. We will attempt to limit nephrotoxic agents and renally dose medications as tolerated. Repeat renal panel in AM. Plan: Continue to monitor. # Dyslipidemia Continue atorvastatin [address] bed[address] Pereira
[2024-07-13] MEDS: ATORVASTATIN CALCIUM 20 MG TABLET 40 MG PO (20:13)
[2024-07-13] MEDS: clonazePAM 0.5 MG TABLET 1 MG PO (20:14)
[2024-07-13] MEDS: HEPARIN SOD INJ 5000 UNIT/ML VIAL SC (20:14)
[2024-07-13] MEDS: oxyCODONE/APAP 5/325 TABLET 1 TAB PO (20:14)
[2024-07-14] VITALS: BP 113/80; PULSE 79; PULSE 83; RESP 12; TEMP 36.3; O2SAT 95
[2024-07-14 04:00] VITALS: BP 139/84; PULSE 75; RESP 24; TEMP 37.1; O2SAT 96
[2024-07-14 05:55] VITALS: BMI 34.8
[2024-07-14 06:33] LABS: Basophils % (Auto) 0 % (0-2.5); Eosinophils # (Auto) 0.2 Thou/mm3 (0.0-0.5); Eosinophils % (Auto) 2 % (0-10); Hematocrit 49.4 % (41.0-53.0); Hemoglobin 17.1 g/dL (13.5-16.0); Immature Granulocytes % (Auto) 1 % (0-0); Immature Granulocytes Auto 0.07 Thou/mm3 (0.00-0.00); Lymphocytes # (Auto) 1.5 Thou/mm3 (1.0-4.8); Lymphocytes % (Auto) 14 % (10-50); Mean Corpuscular HGB Conc 34.6 g/dl (31.0-37.0); Mean Corpuscular Hemoglobin 31.3 pg (25.0-35.0); Mean Corpuscular Volume 91 fL (80-100); Monocytes # (Auto) 0.9 Thou/mm3 (0.0-0.8); Monocytes % (Auto) 9 % (0-12); Neutrophils # (Auto) 7.4 Thou/mm3 (1.8-7.7); Neutrophils % (Auto) 73 % (37-80); Nucleated Red Blood Cell % 0 /100 WBC (0); Platelet Count 213 Thou/mm3 (140-440); RDW Standard Deviation 40.7 fL (35.1-43.9); Red Blood Count 5.46 Miln/mm3 (4.50-5.90); White Blood Count 10.1 Thou/mm3 (3.8-10.6)
[2024-07-14 07:17] LABS: Alanine Aminotransferase 66 U/L (10-49); Albumin, Serum 4.9 gm/dL (3.5-5.0); Alkaline Phosphatase 80 U/L (46-116); Anion Gap 9 (7-16); Aspartate Amino Transferase 96 U/L (0-34); BUN/Creatinine Ratio 14 Ratio (12-20); Bilirubin,Total 1.1 mg/dL (0.3-1.2); Blood Urea Nitrogen 19 mg/dL (9-23); Calcium 10.1 mg/dL (8.3-10.6); Calcium (Corrected) 10.1 mg/dL (8.5-10.1); Chloride 97 mMol/L (98-107); Creatinine (Component) 1.4 mg/dL (0.6-1.3); Globulin 2.5 gm/dL (2.3-3.5); Glucose 140 mg/dL (74-106); Magnesium 2.1 mg/dL (1.6-2.6); Osmolality,Calculated 274 (275-295); Phosphorous 3.7 mg/dL (2.4-5.1); Potassium 4.3 mMol/L (3.4-5.1); Sodium 135 mMol/L (136-145); Total Protein 7.4 gm/dL (5.7-8.2); eGFR 58 See Note
--- NOTE | 2024-07-14 07:31 | PD.RESPRO ---
Documentation for date of: 07/14/24 Exam Vital Signs Temp Pulse Resp BP Pulse Ox O2 Del Method 98.7 F 75 24 H 139/84 H 96 Room Air 07/14/24 04:00 07/14/24 04:00 07/14/24 04:00 07/14/24 04:00 07/14/24 04:00 07/14/24 04:00 Objective Labs 07/14/24 05:26 07/14/24 05:26 Labs: Laboratory Results - last 24 hr 07/14/24 05:26 WBC 10.1 RBC 5.46 Hgb 17.1 H Hct 49.4 MCV 91 MCH 31.3 MCHC 34.6 RDW Std Deviation 40.7 Plt Count 213 Neut % (Auto) 73 Lymph % (Auto) 14 [place] % (Auto) 9 Eos % (Auto) 2 Baso % (Auto) 0 Neut # (Auto) 7.4 Lymph # (Auto) 1.5 [place] # (Auto) 0.9 H Eos # (Auto) 0.2 Baso # (Auto) 0.0 Immature Gran # (Auto) 0.07 H Absolute Nucleated RBC 0.00 Immature Gran % 1 H Nucleated RBC % 0 Sodium 135 L Potassium 4.3 Chloride 97 L Carbon Dioxide 29.0 Anion Gap 9 BUN 19 Creatinine 1.4 H Estim Creat Clear Calc 77.0 eGFR 58 L BUN/Creatinine Ratio 14 Glucose 140 H Calculated Osmolality 274 L Calcium 10.1 Corrected Calcium 10.1 Phosphorus 3.7 Magnesium 2.1 Total Bilirubin 1.1 AST 96 H ALT 66 H Alkaline Phosphatase 80 Total Protein 7.4 Albumin 4.9 D Globulin 2.5 Albumin/Globulin Ratio 2.0 Quality Measures Quality Measures none Assessment & Plan Assessment Current Active Medications: Generic Name Dose Route Start Last Admin Trade Name Freq PRN Reason Stop Dose Admin Acetaminophen 650 mg 07/11/24 08:48 Acetaminophen 325 Mg Tablet PO 08/10/24 08:47 Q6H PRN PAIN SCALE 1-3 (mild Acetaminophen 650 mg 07/11/24 08:48 Acetaminophen 325 Mg Tablet PO 08/10/24 08:47 Q6H PRN Fever >100 Hydrocodone Bitart/Acetaminophen 1 tab 07/11/24 08:48 07/12/24 17:19 Hydrocodone/Apap 10/325 Tab PO 07/16/24 08:47 1 tab Q4HR PRN Administration PAIN SCALE 7-10 (Severe Aspirin 325 mg 07/12/24 09:00 07/13/24 09:08 Aspirin 325 Mg Tablet PO 08/11/24 08:59 325 mg QDAY RODDY Administration Atorvastatin Calcium 40 mg 07/11/24 21:00 07/13/24 20:13 Atorvastatin Calcium 20 Mg Tablet PO 08/10/24 20:59 40 mg HS RODDY Administration Bumetanide 1 mg 07/14/24 09:00 Bumetanide 0.5 Mg Tablet PO 08/13/24 08:59 QDAY RODDY Clonazepam 1 mg 07/11/24 21:00 07/13/24 20:14 Clonazepam 0.5 Mg Tablet PO 07/16/24 20:59 1 mg HS RODDY Administration Clopidogrel Bisulfate 75 mg 07/12/24 09:00 07/13/24 09:08 Clopidogrel Bisulfate 75 Mg Tablet PO 08/11/24 08:59 75 mg QDAY RODDY Administration Heparin Sodium (Porcine) 5,000 unit 07/13/24 21:00 07/13/24 20:14 Heparin Sod Inj 5000 Unit/Ml Vial SC 07/27/24 20:59 5,000 unit BID RODDY Administration Loratadine 10 mg 07/11/24 16:44 Loratadine 10 Mg Tablet PO 08/10/24 16:43 QDAY PRN Allergy Symptoms Metoprolol Succinate 100 mg 07/13/24 11:00 07/13/24 11:58 Metoprolol Succinate Xl 25 Mg Tabcr PO 08/12/24 10:59 100 mg QDAY RODDY Administration Ondansetron HCl 4 mg 07/11/24 08:48 Ondansetron Inj 2 Mg/Ml Inj 2 Ml IV 08/10/24 08:47 Q6H PRN NAUSEA OR VOMITING Protocol Oxycodone/Acetaminophen 1 tab 07/11/24 08:48 07/13/24 20:14 Oxycodone/Apap 5/325 Tablet PO 07/16/24 08:47 1 tab Q6H PRN Administration PAIN SCALE 4-6 (Moderate Pantoprazole Sodium 40 mg 07/11/24 09:00 07/13/24 09:09 Pantoprazole Inj 40 Mg Vial IVP 08/10/24 08:59 40 mg QDAY RODDY Administration Spironolactone 25 mg 07/12/24 16:00 07/13/24 09:09 Spironolactone 25 Mg Tablet PO 08/11/24 15:59 25 mg QDAY RODDY Administration Plan In summary: 58-year-old male with PMH of HTN, HLD, CAD with CABG, presenting with acute substernal chest pain. Admitted for workup for CAD. No events. Vitals okay, CBC okay CMP, CR 1.4 stable, AST 96 up, ALT 66, up Severe multivessel coronary artery disease Ischemic cardiomyopathy, ejection fraction 30% to 35%. Elevated left ventricular end-diastoic pressure with left ventricular dysfunction. RCA 99% stenosis s/p stent CHF, EF 30-35% H/o CAD s/p CABG HTN History of CAD with CABG on daily ASPIRIN 325 mg. Presenting with acute episode of chest pain starting this morning, improved shortly after ASPIRIN and NITROGLYCERIN. -EKG showed sinus rhythm, no acute ST changes. -Was given loading dose of levonex in the ED -TANA score 4 points indicating 20% risk at 14 days of all cause mortality -Judy score: 93 points indicating 3% probability of from admission to 6 months -A1c- 5.9, lipid pannel- [id number] -Cardiology was consulted, Dr. Tian , he underwent cardiac catheter yesterday which showed severe multivessel coronary artery disease, ischemic cardiomyopathy with ejection fraction 30 to 35% -right coronary artery, subtotal occlusion, 99% stenosis with heavy calcification, complex plaque, underwent successful PCI stent placement. ? Continue ASPIRIN 325 mg daily ? Continue ATORVASTATIN 40 mg daily ? Continue CLOPIDOGREL 75 mg daily ? Continue METOPROLOL 100 mg daily ? Continue SPIRONOLACTONE 25 mg daily ? Holding LISINOPRIL in setting of NIRAV #Mild NIRAV -His creatinine today is 1.4, most likely in the setting of contrast yesterday during -Will continue to monitor # Leukocytosis?mild -His WBC count today was 11.5, most likely reactive -Will continue to monitor # Dyslipidemia Continue atorvastatin 40 mg p.o. at bedtime #Generalized anxiety disorder -Reports being more anxious lately as a result of work at home stress. No suicidal or homicidal ideation. ? Continue home CLONAZEPAM 1 mg HS Gout -History of gout. No signs of gout flares. ? Continued home ALLOPURINOL 200 mg daily Health maintenance Diet: Cardiac GI prophylaxis: PROTONIX DVT prophylaxis: Heparin Antibiotics: Not indicated CODE STATUS: Full code Disposition: Status postcardiac cath, anticipate discharge in next 24 to 48 hours Patient case was discussed with attending Silke Pereira MD,PGY-3
[2024-07-14 08:00] VITALS: BP 112/69; PULSE 106; RESP 13; TEMP 36.7; O2SAT 97
[2024-07-14 08:56] VITALS: BP 112/69; PULSE 106
[2024-07-14] MEDS: Aspirin 325 MG TABLET PO (08:56)
[2024-07-14] MEDS: BUMETANIDE 0.5 MG TABLET 1 MG PO (08:56)
[2024-07-14 08:57] VITALS: BP 112/69; PULSE 106
[2024-07-14] MEDS: SPIRONOLACTONE 25 MG TABLET PO (08:57)
[2024-07-14] MEDS: METOPROLOL SUCCINATE XL 25 MG TABCR 100 MG PO (08:57)
[2024-07-14] MEDS: CLOPIDOGREL BISULFATE 75 MG TABLET PO (08:57)
[2024-07-14] MEDS: PANTOPRAZOLE INJ 40 MG VIAL IVP (08:58)
[2024-07-14] MEDS: HEPARIN SOD INJ 5000 UNIT/ML VIAL SC (08:58)
--- NOTE | 2024-07-14 15:05 | ESDS_ITS ---
Planned Discharge Date 07/14/24 DS: Providers Provider Date of admission: 07/11/24 08:48 Primary care physician: Faisal Nava MD Admitting Provider: Hugh Pereira MD Attending Provider on Admission: Hugh Pereira MD Consults: 07/11/24 09:58 Consult to Cardiology Routine Comment: Consulting Provider: Zeenat Tian Attending Provider on DC: Hugh Pereiar MD Discharging Provider: Hugh Pereira MD DS: Diagnosis Problem List Completed Was Problem List Reviewed/Reconciled?: Yes Hospital Course Hospital Course Hospital course: This is a 58-year-old male with PMHx of HTN, HLD, CAD with CABG who presented with acute chest pain, admitted for NSTEMI. He underwent [employer] and [place]. RCA was 99% stenosed and heavily calcified which PCI with drug-eluting stent. Patient was stable at the time of discharge, without chest pain or shortness of breath. Medications have been changed with cardiology on board. He will follow- up with cardiology upon discharge. PATIENT INSTRUCTIONS: Follow-up with PCP within 1 week of discharge. Follow-up with cardiology, Dr. Tian within 1 week of discharge. Return to Emergency Room if symptoms persist, worsen, or new symptoms develop. Continue taking medications as prescribed below: ? Continue ATORVASTATIN 40 mg daily ? Continue BUMEX 2 mg daily ? Continue SPIRONOLACTONE 25 mg daily ? Continue CLOPIDOGREL 75 mg daily ? Continue ASPIRIN 325 mg daily ? Continue LISINOPRIL 40 mg daily ? Continue METOPROLOL SUCCINATE 1 mg daily ? Continue ALLOPURINOL 200 mg daily ? Continue CLONAZEPAM 1 mg daily ? Continue NORCO 5-325 mg q.6h. PRN for back pain ? Continue LORATADINE 10 mg daily ? Continue NITROGLYCERIN 0.4 mg as needed for chest pain ? Discontinue METOPROLOL titrate 50 mg BID ? Discontinue SIMVASTATIN 40 mg daily ADMISSION DIAGNOSES: Severe multivessel coronary artery disease Ischemic cardiomyopathy, ejection fraction 30% to 35% RCA 99% stenosis s/p drug-eluded stent HTN HLD Generalized anxiety disorder Gout Anxiety Patient case was discussed with attending, Hugh Pereira MD and senior resident Dr. Prescott. Wild Navarro, PGYI Time Spent with Patient Time attestation: Total time spent providing and/or coordinating discharge services: Greater than 35 minutes. Exam Vital Signs Temp Pulse Resp BP Pulse Ox O2 Del Method 98.1 F 106 H 13 112/69 97 Room Air 07/14/24 08:00 07/14/24 08:57 07/14/24 08:00 07/14/24 08:57 07/14/24 08:00 07/14/24 08:00 Narrative Exam GENERAL * Normal appearing middle-aged male, NAD, on nasal cannula. HEENT * NCAT.?IDALIA. Oral mucosa is moist. Patent Nares NECK * Supple, nontender, no thyromegaly, no meningismus, no JVD, no step offs CHEST * RRR, no m/g/r * CTAB, no w/r/r. Symmetrical chest rise. No intercostal subcostal retraction * Atraumatic, nontender, no crepitus, symmetrical expansion. ABDOMEN * Soft, flat, nontender. No guarding/rebound tenderness/masses. * Bowel sounds presents EXTREMITIES * Nontender, no cyanosis, no edema * No edema/cyanosis.? SKIN * Warm and dry, no jaundice/rashes. NEUROMUSCULAR * No lumbar or midline, no CVA, no paraspinal muscle spasm or tenderness. * Moves all 4 extremities well, with full ROM and good CSM. * [place] x4, CN II-XII grossly intact. * No focal neurologic deficits. PSYCHIATRY * Normal mood and affect, cooperative, no SI or HI or hallucinations. Discharge Plan Plan Patient Disposition: HOME (Self Care) Prescriptions/Referrals Prescriptions/Med Rec: New metoprolol succinate 100 mg tablet extended release 24 hr 100 mg PO QDAY 30 Days Qty: 30 3RF clopidogrel 75 mg Tablet 75 mg PO QDAY 30 Days Qty: 30 3RF spironolactone 25 mg Tablet 25 mg PO QDAY 30 Days Qty: 30 3RF bumetanide 2 mg tablet 2 mg PO QDAY 30 Days Qty: 30 3RF atorvastatin 40 mg tablet 40 mg PO HS 30 Days Qty: 30 3RF Continued lisinopril [Prinivil] 20 MG tablet 40 mg PO HS Qty: 30 allopurinol 300 MG tablet 300 mg PO DAILY Qty: 0 clonazepam [Klonopin] 1 MG tablet 1 mg PO HS Qty: 0 aspirin 325 mg capsule 325 mg PO QDAY 30 Days Qty: 30 2RF hydrocodone-acetaminophen 5-325 mg tablet 1 tab PO Q6H PRN (Reason: Back Pain) Patient Comments: TAKE 1 TABLET BY MOUTH EVERY 6 HOURS NEEDED FOR BACK PAIN nitroglycerin 0.4 mg tablet, sublingual 0.4 mg BUCCAL PRN PRN (Reason: Chest Pain) loratadine [Claritin] 10 mg Tablet 10 mg PO QDAY PRN (Reason: Allergy Symptoms) Discontinued simvastatin 40 MG tablet 40 mg PO HS Qty: 0 metoprolol tartrate 50 mg tablet 50 mg PO BID aspirin 325 mg Capsule 325 mg PO QDAY Referrals: Zeenat Tian MD [Physician] - Faisal Nava MD [Primary Care Provider] - Patient/Caregiver Discharge Instructions Discharge Activity: activity as tolerated Other Discharge Activity Instructions:: Follow-up with PCP within 1 week of discharge. Follow-up with cardiology, Dr. Tian within 1 week of discharge. Return to Emergency Room if symptoms persist, worsen, or new symptoms develop. Continue taking medications as prescribed below: ? Continue ATORVASTATIN 40 mg daily ? Continue BUMEX 2 mg daily ? Continue SPIRONOLACTONE 25 mg daily ? Continue CLOPIDOGREL 75 mg daily ? Continue ASPIRIN 325 mg daily ? Continue LISINOPRIL 40 mg daily ? Continue METOPROLOL SUCCINATE 1 mg daily ? Continue ALLOPURINOL 200 mg daily ? Continue CLONAZEPAM 1 mg daily ? Continue NORCO 5-325 mg q.6h. PRN for back pain ? Continue LORATADINE 10 mg daily ? Continue NITROGLYCERIN 0.4 mg as needed for chest pain ? Discontinue METOPROLOL titrate 50 mg BID ? Discontinue SIMVASTATIN 40 mg daily Education Materials: Coronary Stents, Having Cardiac Catheterization, Cardiac Catheterization Dc, Eating Heart-Healthy Foods, Procedural Sedation, [facility] Percutaneous Coronary Intervention Discharge Instructions Print Language: [place]anian Activity Restrictions/Additional Instructions: Please call to Schedule a follow up appointment with Dr. Tian, (Final Canoe Inspector), to be seen in his office within one week upon discharge Address: [address] [place] [address]. Please call to schedule a follow up appointment with your primary care doctor 1- 2 weeks after discharge so he/she can make further recommendations about your overall health condition. DO NOT drive or operate any motor vehicle, heavy equipment or machinery in the next 24 hours. DO NOT perform any activity that requires you to be fully alert in the next 24 hour. DO NOT sign any documentation in the next 24 hours that requires a full understanding of what you are signing for. Do not perform any strenuous physical activity in the next 5 days. Avoid activities that require bending at your waist in the next 5 days. Avoid lifting objects 5 pounds or heavier in the next 5 days. Do not strain your bowel. If you experience constipation, drink plenty of fluids, especially water, if not contraindicated by your doctor. In addition, add foods rich in fiber. Should you experience constipation, talk to your doctor about other options that might help you alleviate it. Keep your blood pressure under control. If you take blood pressure medication, continue to take it if not contraindicated by your doctor. Doing so, helps to prevent post-complications such as bleeding. Take your new/previous medication as directed by the doctor. If there is no changes, continue to take medication at your usual time. After 5 days, start increasing the level of physical activity gradually for the subsequent 5 days. You can resume your shower routine tomorrow but keep your dressing clean and dry. Remove the dressing placed on the surgical incision 48 hours after discharge. After removing your dressing, you can gently clean your surgical site with soap and water and pad dry it. DO NOT rub site to prevent complication such as bleeding. DO NOT apply any lotions, creams, or powders on the surgical site until your skin completely heels (5 days or more). Should you experience any type of complications such as pain, change in color, temperature, a bruise that increases in size and color at the surgical site (Groin Area), a lump (Hard or soft) that develops and increases in size at the surgical site (Groin Area), numbness, or changes in sensation, Chest pain, or shortness of breath; PLEASE GO TO THE NEAREST EMERGENCY ROOM IMMEDIATELY. Look out for signs of infection such as tenderness, redness, or drainage to your surgical site (Groin Area); if any, report them to your primary care doctor immediately. Stand Alone Forms: Flor Award Info., Patient Portal Info Letter Discharge Order Discharge Orders: Discharge (Routine); Ordered 07/14/24 Ordered By: Yoni Prescott Quality Discharge Quality Measures VTE prophylaxis Attestestation Attestation I have examined the patient, reviewed labs and imaging findings, discussed the case with the resident(s), and reviewed entered orders. I agree with the plan of care as outlined in this note. Dr. Pereira
== END 2024-07-14 11:55 | disposition home or self-care (01) | DRG 322 ==
LOC: SERX 08:22 → SERHOLD 08:56 → S2NX 22:55
PROVIDERS: Internal Medicine Cardiovascular Disease; Nurse Practitioner Family; Student in an Organized Health Care Education/Training Program; Admitting Provider Student in an Organized Health Care Education/Training Program; Emergency Provider Emergency Medicine; PCP Family Medicine; Visit Provider Student in an Organized Health Care Education/Training Program
PROC: 027034Z Dilation of Coronary Artery, One Artery with Drug-eluting Intraluminal Device, Percutaneous Approach (ICD-10-PCS; principal; 2024-07-12 08:30)
DX: I21.4 Non-ST elevation (NSTEMI) myocardial infarction (principal); N17.9 Acute kidney failure, unspecified; E78.5 Hyperlipidemia, unspecified; Z95.1 Presence of aortocoronary bypass graft; I25.10 Atherosclerotic heart disease of native coronary artery without angina pectoris; I25.2 Old myocardial infarction; Z87.891 Personal history of nicotine dependence; Z79.82 Long term (current) use of aspirin; F41.1 Generalized anxiety disorder; M10.9 Gout, unspecified; I25.5 Ischemic cardiomyopathy; I11.0 Hypertensive heart disease with heart failure; I50.9 Heart failure, unspecified; D72.829 Elevated white blood cell count, unspecified
CPT/HCPCS: 36415; 71045; 80053; 80061; 80307; 81001; 83036; 83735; 83880; 84100; 84443; 84484; 85025; 85347; 85379; 85610; 85730; 87811; 93005; 93306; 96372; 96374; 96375; 99152; 99153; 99291; A4649; C1725; C1760; C1769; C1874; C1887; C1894; J0171; J0461; J1643; J1650; J1940; J2250; J2270; J2310; J2371; J2470; J3010; J3490; Q9967; A9270; J2305

== ENCOUNTER → 2024-12-07 | Outpatient (CLI) | payer OTHER, SELFPAY ==
[2024-12-07 13:38] LABS: Amphetamine/Methamp Scrn,U Negative (Negative); Barbiturate Screen,Urine Negative (Negative); Benzodiazepines Screen,Urine Negative (Negative); Benzoylecgonine Screen, Ur Negative (Negative); Fentanyl Screen,Urine Negative (Negative); Opiate Screen,Urine Positive (Negative); THC Screen,Urine Negative (Negative)
== END | disposition home or self-care (01) ==
PROVIDERS: Referring Provider Family Medicine; Visit Provider Family Medicine
DX: M54.2 Cervicalgia (principal); Z71.51 Drug abuse counseling and surveillance of drug abuser
CPT/HCPCS: 80307

== ENCOUNTER → 2025-02-05 | Outpatient (CLI) | payer OTHER, SELFPAY ==
[2025-02-05 08:52] LABS: Misc Send Out* See Sep Rpt
[2025-02-05 09:14] LABS: Basophils # (Auto) 0.0 Thou/mm3 (0.0-0.2); Basophils % (Auto) 0 % (0-2.5); Eosinophils # (Auto) 0.3 Thou/mm3 (0.0-0.5); Eosinophils % (Auto) 3 % (0-10); Hematocrit 44.6 % (41.0-53.0); Hemoglobin 15.4 g/dL (13.5-16.0); Immature Granulocytes Auto 0.03 Thou/mm3 (0.00-0.00); Lymphocytes # (Auto) 1.4 Thou/mm3 (1.0-4.8); Lymphocytes % (Auto) 18 % (10-50); Mean Corpuscular HGB Conc 34.5 g/dl (31.0-37.0); Mean Corpuscular Hemoglobin 31.0 pg (25.0-35.0); Mean Corpuscular Volume 90 fL (80-100); Monocytes # (Auto) 0.5 Thou/mm3 (0.0-0.8); Monocytes % (Auto) 7 % (0-12); Neutrophils # (Auto) 5.2 Thou/mm3 (1.8-7.7); Neutrophils % (Auto) 70 % (37-80); Nucleated Red Blood Cell # 0.00 Thou/mm3 (0.00-0.00); Nucleated Red Blood Cell % 0 /100 WBC (0); Platelet Count 245 Thou/mm3 (140-440); RDW Standard Deviation 41.3 fL (35.1-43.9); Red Blood Count 4.96 Miln/mm3 (4.50-5.90); White Blood Count 7.4 Thou/mm3 (3.8-10.6)
[2025-02-05 09:30] LABS: Glucose Estimated Average 128 mg/dL (80-131); Hemoglobin A1C 6.1 % Hgb (4.8-6.0)
[2025-02-05 09:38] LABS: Alanine Aminotransferase 26 U/L (10-49); Albumin, Serum 4.4 gm/dL (3.4-4.8); Albumin/Globulin Ratio 2.1 (1.2-2.2); Alkaline Phosphatase 75 U/L (46-116); Anion Gap 8 (7-16); Aspartate Amino Transferase 26 U/L (0-34); BUN/Creatinine Ratio 11 Ratio (12-20); Bilirubin,Total 1.4 mg/dL (0.3-1.2); Blood Urea Nitrogen 16 mg/dL (9-23); Calcium 9.7 mg/dL (8.3-10.6); Calcium (Corrected) 9.7 mg/dL (8.5-10.1); Carbon Dioxide 27.8 mMol/L (20.0-31.0); Cardiac Risk Estimate 3.8 RATIO (4.0-6.7); Chloride 104 mMol/L (98-107); Cholesterol 135 mg/dL (132-200); Creatinine (Component) 1.4 mg/dL (0.6-1.3); Globulin 2.1 gm/dL (2.3-3.5); Glucose 124 mg/dL (74-106); HDL Cholesterol 36 mg/dL (40-60); LDL Cholesterol,Calculated 70 mg/dL (0-130); Osmolality,Calculated 281 (275-295); Potassium 4.8 mMol/L (3.4-5.1); Sodium 140 mMol/L (136-145); Thyroid Stimulating Hormone 2.46 uIU/mL (0.55-4.78); Total Protein 6.5 gm/dL (5.7-8.2); Triglycerides 143 mg/dL (30-150); eGFR 58 See Note
== END | disposition home or self-care (01) ==
LOC: COPL 08:00
PROVIDERS: PCP Student in an Organized Health Care Education/Training Program; Referring Provider Student in an Organized Health Care Education/Training Program; Visit Provider Student in an Organized Health Care Education/Training Program
DX: R73.03 Prediabetes (principal); E78.2 Mixed hyperlipidemia; I25.10 Atherosclerotic heart disease of native coronary artery without angina pectoris; I11.9 Hypertensive heart disease without heart failure; F41.9 Anxiety disorder, unspecified
CPT/HCPCS: 36415; 80053; 80061; 80347; 83036; 84443; 85025; G0480